=== PATIENT | female | born 1940 | race Caucasian/White ===

== ENCOUNTER → 2017-01-01 | Outpatient (CLI) | payer BC ==
[~2017-01-01] MED LIST: AMOX500C3 PO; ATOR10TA88 PO; CALC-393 PO; CALC600T9 PO; COEN200C PO; CYCL0.052 OP; HYDR25TA4 PO; MISCCAP80 PO; PANT40TA PO; PRDFOPS
[2017-01-01 09:47] LABS: BASO % 0.3 %; BASO ABS # 0.02 K/uL (0-0.2); COMPLETE YES; EOS % 1.7 %; HEMATOCRIT 46.1 % (37-47); IG% 0.1 %; LYMPH ABS # 2.05 K/uL (1.2-3.4); MEAN CELL VOLUME 89.3 fL (80-100); MEAN CORPUSCULAR HEMOGLOBIN 30.6 pg (25-34); MEAN CORPUSCULAR HGB CONC 34.3 g/dl (32-36); MEAN PLATELET VOLUME 9.7 fL (7.4-10.4); MONO % 8.9 %; PLATELET COUNT 238 K/uL (130-400); RED BLOOD COUNT 5.16 M/uL (4.2-5.4); WHITE BLOOD COUNT 7.87 K/uL (4.8-10.8)
[2017-01-01 09:50] LABS: URINE APPEARANCE CLEAR (CLEAR); URINE BILIRUBIN NEG (NEG); URINE COLOR YELLOW; URINE EPITHELIAL CELL AUTO 20-30 /lpf (0-5); URINE NITRITE NEG (NEG); URINE PH 5.5 (4.5-7.5); URINE SPECIFIC GRAVITY 1.019 (1.000-1.030); UROBILINOGEN NEG (NEG); ZZUR CULT IF INDIC CLEAN CATCH NO
[2017-01-01 09:57] LABS: ALT/SGPT 26 U/L (12-78); AST/SGOT 23 U/L (15-37); BLOOD UREA NITROGEN 21 mg/dl (7-18); BUN/CREATININE RATIO 20.9 (10-20); CALCIUM 9.4 mg/dl (8.5-10.1); CARBON DIOXIDE 30 mmol/L (21-32); CHLORIDE 102 mmol/L (98-107); CREATININE 0.98 mg/dl (0.60-1.20); GLUCOSE 139 mg/dl (70-99); POTASSIUM 3.6 mmol/L (3.5-5.1); SODIUM 139 mmol/L (136-145)
[2017-01-01 10:14] LABS: MANUAL MICROSCOPIC REQUIRED? NO; REVIEW REQ? NO
== END | disposition home or self-care (01) ==
LOC: C.LAB1850 08:17
PROVIDERS: ATTEND Internal Medicine
DX: E78.00 Pure hypercholesterolemia, unspecified (principal)

== ENCOUNTER → 2017-03-23 | Outpatient (CLI) | payer BC ==
[~2017-03-23] MED LIST changes: +ATOR10TA82 PO; -ATOR10TA88 PO; -CALC-393 PO; -PRDFOPS
== END | disposition home or self-care (01) ==
LOC: C.RDSM 13:55
PROVIDERS: ATTEND Physical Medicine & Rehabilitation Sports Medicine
DX: M25.561 Pain in right knee (principal)

== ENCOUNTER → 2017-04-02 | Outpatient (CLI) | payer BC ==
[~2017-04-02] MED LIST changes: -ATOR10TA82 PO; +ATOR10TA88 PO
[2017-04-02 09:29] LABS: BASO % 0.4 %; BASO ABS # 0.03 K/uL (0-0.2); COMPLETE YES; EOS % 1.7 %; HEMATOCRIT 45.8 % (37-47); IG% 0.3 %; LYMPH % 28.2 %; MEAN CELL VOLUME 88.8 fL (80-100); MEAN CORPUSCULAR HEMOGLOBIN 30.4 pg (25-34); MEAN CORPUSCULAR HGB CONC 34.3 g/dl (32-36); MEAN PLATELET VOLUME 9.6 fL (7.4-10.4); MONO % 8.6 %; NEUT % 60.8 %; PLATELET COUNT 234 K/uL (130-400); RED BLOOD COUNT 5.16 M/uL (4.2-5.4); WHITE BLOOD COUNT 7.81 K/uL (4.8-10.8)
[2017-04-02 09:45] LABS: ESTIMATED AVERAGE GLUCOSE 131 mg/dl; HA1C FLAG Normal (Normal)
[2017-04-02 10:04] LABS: CHOLESTEROL/HDL RATIO 3.3; THYROID STIMULATING HORMONE 2.86 uIu/ml (0.300-4.500)
== END | disposition home or self-care (01) ==
LOC: C.LAB1850 08:35
PROVIDERS: ATTEND Internal Medicine
DX: E78.00 Pure hypercholesterolemia, unspecified (principal)

== ENCOUNTER → 2017-04-09 | Outpatient (CLI) | payer BC ==
--- NOTE | 2017-04-09 13:47 | MAMMOGRAPHY REPORT ---
BILATERAL DIGITAL SCREENING MAMMOGRAM WITH CAD: 04/09/2017 CLINICAL HISTORY: Routine screening. Patient has no complaints. TECHNIQUE: Bilateral CC and MLO views were obtained. Current study was also evaluated with a Compute r Aided Detection (CAD) system. COMPARISON: Comparison is made to exams dated: 03/11/2016 mammogram, 03/07/2015 mammogram, 03/06/2014 mamm ogram, 03/03/2013 mammogram, 02/28/2011 mammogram - [facility], and 03/13/2009. BREAST COMPOSITION: There are scattered areas of fibroglandular density in both breasts. FINDINGS: There is an increasingly prominent focal asymmetry measuring 11 x 14 mm in the upper outer posterior left breast, in the same location as a ribbon shaped metallic biopsy marker clip. Additio nal spot compression tomosynthesis views and possible ultrasound are recommended. There is stable nodularity in the anterior retroareolar left breast. Mild vascular calcification jamil aterally. No other suspicious mass, architectural distortion or cluster of microcalcifications is see n. IMPRESSION: ACR BI-RADS CATEGORY 0: INCOMPLETE EVALUATION: NEED ADDITIONAL IMAGING EVALUATION The increasingly prominent 11 x 14 mm asymmetry in the left upper outer quadrant needs additional kaylan luation. The patient will be called to schedule an appointment. Approximately 10% of breast cancers are not detected with mammography. A negative mammographic report should not delay biopsy if a clinically suggestive mass is present. Merced Rosas M.D. ay/:04/09/2017 13:07:41 Manager Intelligence: Shauna KEY)(Yazmin), [facility] letter sent: Addl Imaging 0 BI-RADS Code: ACR BI-RADS Category 0: Incomplete Evaluation: Need Additional Imaging Evaluation
== END | disposition home or self-care (01) ==
LOC: C.MAMM 09:58
PROVIDERS: ATTEND Obstetrics & Gynecology
DX: Z12.31 Encounter for screening mammogram for malignant neoplasm of breast (principal); N64.89 Other specified disorders of breast

== ENCOUNTER → 2017-04-14 | Day surgery (SDC) | payer BC ==
[2017-03-18 14:30] VITALS: Ht 166.4 cm; Wt 95.5 kg
[~2017-04-14] VITALS: Ht 166.4 cm; Wt 95.5 kg
[~2017-04-14] MED LIST changes: +500ML BSS 0.3ML EPI 1:1000PF IRRIG ONE; +ACETAMINOPHEN 325 MG TAB PO PRN; +AMVISC PLUS 0.8ML SYRINGE INT OCU ONE; +ATROPINE SULFATE 0.1 MG/ML 5ML SYR IV PRN; +BSS FLUSH ONE; +EpHEDrine SULFATE INJ 50 MG/ML AMP IV PRN; +EpINEphrine INJ 1MG/ML AMP 1 MG/ML AMP ONE; +LACTATED RINGER'S 1000ML 500 ML IV SCH; +LIDOCAINE 3.5% OPH GEL PER APPLICATION CHARGE ONE; +LIDOCAINE HCL 1% MPF 2 ML VIAL ONE; +MIDAZOLAM HCL 1 MG/ML 2ML VIAL ONE; +OCUCOAT 1 ML SOLN IO ONE; +POVIDONE-IODINE OP SOLN 30 ML BTL ONE; +PROPARACAINE 0.5% OP SOLN PER DROP CHARGE OPR SCH; +TOBRAMYCIN/DEXAMETHASONE OPH OINT PER APPLN CHARGE ONE
[2017-04-14] MEDS: PHENYLEPHRINE HCL 2.5% OP SOLN PER DROP CHARGE OPR SCH ×2 (07:54→08:02)
[2017-04-14] MEDS: TROPICAMIDE 1% OP SOLN PER DROP CHARGE OPR SCH ×2 (07:55→08:04)
[2017-04-14] MEDS: CYCLOPENTOLATE HCL 1% OP SOLN PER DROP CHARGE OPR SCH ×2 (07:56→08:05)
[2017-04-14] MEDS: KETOROLAC 0.5% OP SOLN PER DROP CHARGE OPR SCH ×2 (07:58→08:06)
[2017-04-14] MEDS: GATIFLOXACIN OP SOLN PER DROP CHARGE OPR SCH ×2 (08:00→08:14)
--- NOTE | 2017-04-14 08:11 | History & Physical Bridge - SC ---
H&P Re-Evaluation Bridge Note: I have examined the patient, reviewed the History & Physical and in the interval since the performance of the History & Physical I have noted the following changes of clinical significance: No changes noted
--- NOTE | 2017-04-14 08:53 | Discharge Instructions-SurgCtr ---
Discharge Instructions Date of Service Apr 14, 2017. Visit Reason for Visit: Right Cataract Discharge Discharge Diagnosis / Problem: cataract Discharge Goals Goal(s): Improve function Activity Recommendations Activity Limitations: per Instructions/Follow-up section Anesthesia . Post Anesthesia Instructions: If you have had General Anesthesia or IV Sedation: * Do not drive today. * Resume driving when surgeon permits. * Do not make important decisions or sign legal documents today. * Call surgeon for: 1. Temperature elevations greater than 101 degrees F. 2. Uncontrollable pain. 3. Excessive bleeding. 4. Persistent nausea and vomiting. 5. Medication intolerance (nausea, vomiting or rash). * For nausea and vomiting use only clear liquids such as: tea, soda, bouillon until nausea subsides, then gradually increase diet as tolerated. * If you have any concerns or questions, call your surgeon's office. If physician is unavailable and it is an emergency, call 911 or go to the nearest emergency room. . Instructions / Follow-Up Instructions / Follow-Up ACTIVITY RECOMMENDATIONS: * No strenuous lifting, jogging or running for 4 days * No swimming or yard work for 1 week. * Limited bending is permitted, such as putting on shoes. RETURN TO SCHOOL/WORK: No work until seen by physician in office. MEDICATIONS: Resume previous medications unless instructed otherwise by your surgeon. This includes eye drops for glaucoma. Zymaxid/Gatifloxacin (juárez cap) - one drop every 2 hours until bedtime Nevanac/Ilevro/Prolensa/Ketorolac (lester cap) - one drop every 4 hours until bedtime Prednisolone/Durezol (white/pink cap, SHAKE WELL) - one drop every 2 hours until bedtime Starting tomorrow - all 3 drops every 4 hours until seen in the office Optive drops - as needed for discomfort SPECIAL CARE INSTRUCTIONS: * Wear eyeshield when sleeping, for four nights. * You may wear your own glasses or sunglasses while awake. * You may read or watch TV * You may shower and wash your face, but be gentle around the eye and pat dry. * Blurry vision and mild irritation are normal. * Call office if pain is more severe or vision becomes dark at . FOLLOW UP VISIT: Follow-up with Dr Torres tomorrow. Diet Recommendations Home Diet: resume previous diet Procedures Procedures Performed: Right Cataract Phacoemulsification With Intraocular Lens Implant Pending Studies Studies pending at discharge: no Medical Emergencies . Who to Call and When: Medical Emergencies: If at any time you feel your situation is an emergency, please call 911 immediately. . Non-Emergent Contact Non-Emergency issues call your: [employer] . . "Provider Documentation" section prepared by Cosmo Torres. .
--- NOTE | 2017-04-14 08:54 | [facility] Operative Report ---
Operative Report Date of Service Apr 14, 2017. Operative Report 1. PREOPERATIVE DIAGNOSIS: Cataract of the right eye. 2. POSTOPERATIVE DIAGNOSIS: Same. 3. PROCEDURE: Phacoemulsification with intraocular lens implantation of the right eye. SURGEON: Dr. Cosmo Torres. ANESTHESIA: Topical Lidocaine gel, 1% Non- Preserved intracameral Lidocaine, and monitored intravenous sedation. INDICATIONS FOR THE PROCEDURE: The patient is a 77 - year-old female with a history of cataract of the right eye causing significant visual impairment. The details of the proposed procedure were explained to the patient who asked appropriate questions and following discussion of all risks, benefits and alternatives agreed to have the procedure done. 4. OPERATION AND FINDINGS: DESCRIPTION OF PROCEDURE: After informed consent was obtained, the patient was brought to the Operating Room at the [facility]. The patient was placed in a supine position and then the right eye was prepped and draped in the usual sterile fashion for intraocular surgery. A drop of topical Lidocaine gel was placed in the operative eye. A wire lid speculum was then placed in the fornices. A corneal paracentesis was then created temporally. The Non-Preserved Lidocaine was then instilled into the anterior chamber. The anterior chamber was then pressurized with viscoelastic. A 2.0 mm clear corneal incision was then created temporally. A cystotome was inserted into the anterior chamber and used to create a tear in the anterior lens capsule. This capsular tear was then used to create a small flap and the flap was dragged in a counterclockwise direction in order to create a continuous curvilinear capsulorrhexis. Hydrodissection was accomplished with balanced salt solution. Phacoemulsification of the lens nucleus was then performed in a standard [id number] technique. The phaco time was 26 seconds with an average power of 15 %. The remaining cortical material was removed using irrigation aspiration. The capsular bag was then filled with viscoelastic. A B[employer]ch [employer] Lomb MI60L +26.5 diopters lens was then loaded into the injector and injected into the capsular bag. The remaining viscoelastic was removed with the irrigation aspiration handpiece. The wound was hydrated and then checked and found to be watertight. The intraocular pressure was checked and found to be adequate. The wire lid speculum was removed and the patient's face was cleaned and dried. TobraDex ointment was placed in the inferior fornix. The patient was discharged to the Recovery Room having tolerated the procedure well. There were no complications. The patient will be seen tomorrow in the office for follow-up. I attest to the content of the Intraoperative Record and any orders documented therein. Any exceptions are noted below.
[2017-04-14 08:55] VITALS: BP_DIAS 78; TEMP 36.4
--- NOTE | 2017-04-14 09:13 | Anesthesia Progress Nt - [facility] ---
Anesthesia Post Op Note Date & Time Apr 14, 2017 at 09:13 Vital Signs Pain Intensity: 0 Vital Signs Past 12 Hours Date Time Temp Pulse Resp B/P (MAP) Pulse Ox O2 Delivery O2 Flow Rate FiO2 04/14/17 08:55 36.4 68 16 124/78 (93) 98 Room Air 04/14/17 07:37 36.7 66 16 141/ (47) 93 Room Air Notes Mental Status: alert / awake / arousable, participated in evaluation Pt Amnestic to Procedure: Yes Nausea / Vomiting: adequately controlled Pain: adequately controlled Airway Patency, RR, SpO2: stable & adequate BP & HR: stable & adequate Hydration State: stable & adequate Anesthetic Complications: no major complications apparent
[2017-04-14 09:18] VITALS: BP_SYST 74; PULSE 65; O2SAT 95
== END | disposition home or self-care (01) ==
LOC: X.SURG 07:26
PROVIDERS: ATTEND Ophthalmology
DX: H26.9 Unspecified cataract (principal); I10 Essential (primary) hypertension; E78.00 Pure hypercholesterolemia, unspecified; E78.1 Pure hyperglyceridemia

== ENCOUNTER → 2017-04-22 | Outpatient (CLI) | payer BC ==
[~2017-04-22] MED LIST changes: -500ML BSS 0.3ML EPI 1:1000PF IRRIG ONE; -ACETAMINOPHEN 325 MG TAB PO PRN; -AMVISC PLUS 0.8ML SYRINGE INT OCU ONE; -ATROPINE SULFATE 0.1 MG/ML 5ML SYR IV PRN; -BSS FLUSH ONE; -EpHEDrine SULFATE INJ 50 MG/ML AMP IV PRN; -EpINEphrine INJ 1MG/ML AMP 1 MG/ML AMP ONE; -LACTATED RINGER'S 1000ML 500 ML IV SCH; -LIDOCAINE 3.5% OPH GEL PER APPLICATION CHARGE ONE; -LIDOCAINE HCL 1% MPF 2 ML VIAL ONE; -MIDAZOLAM HCL 1 MG/ML 2ML VIAL ONE; -OCUCOAT 1 ML SOLN IO ONE; -POVIDONE-IODINE OP SOLN 30 ML BTL ONE; -PROPARACAINE 0.5% OP SOLN PER DROP CHARGE OPR SCH; -TOBRAMYCIN/DEXAMETHASONE OPH OINT PER APPLN CHARGE ONE
--- NOTE | 2017-04-22 13:53 | MAMMOGRAPHY REPORT ---
UNILATERAL LEFT DIGITAL DIAGNOSTIC MAMMOGRAM TOMOSYNTHESIS AND TARGETED LEFT ULTRASOUND: 04/22/2017 CLINICAL HISTORY: 77-year-old woman with a history of previous ultrasound guided core biopsy in the 1 :30 left breast, 5 cm from the nipple in 2008. She was currently called back from screening mammogra phy for increasing asymmetry in the upper outer left breast surrounding the biopsy marker clip. During diagnostic evaluation, the patient underwent an extended discussion regarding problem she has had in the left breast since the biopsy in 2008. She initially reported pain and then nipple dischar ge. She had an outside consultation and second opinion in [place], [place]. They performed a galacto gram, presumably for the nipple discharge, and she also discussed a desire to have the biopsy marker clip removed. One of her consulting physicians recommended not removing the biopsy marker clip. She reported the galactogram results were negative. Most recently she had a few days instance of diffus e severe pain in the left breast, which based on her description could have represented mastitis. Cu rrently she is asymptomatic. TECHNIQUE: Spot compression left CC and MLO 2-D and tomosynthesis images were performed in the left u pper outer quadrant. COMPARISON: Comparison is made to exams dated: 04/09/2017 mammogram, 03/11/2016 mammogram, 03/07/2015 mamm ogram, 03/06/2014 mammogram, 03/03/2013 mammogram, and 03/02/2012 mammogram - [facility] BREAST COMPOSITION: There are scattered areas of fibroglandular density in the left breast. FINDINGS: There is a persistent multiloculated, partially circumscribed mass associated with and/or s urrounding the biopsy marker clip in the 1:30 middle one third of the left breast, measuring 6.6 x 11 .0 x 10.0 mm. This is increased comparing back to the 2010 mammograms. No associated architectural distortion or microcalcification. Other scattered circumscribed subcentimeter masses are again seen throughout the left breast. No other suspicious or irregular mass, focal area of architectural disto rtion or suspicious calcifications are seen. Targeted ultrasound was performed in the upper outer quadrant of the left breast with particular atte ntion to the 1:30 axis. In the 1:30 left breast, 5 cm from the nipple, there are a cluster of cysts versus a multiloculated cyst measuring 8.6 x 4.5 x 10.6 mm in conglomerate. This correlates well wit h the shape and location as the mammographic mass. There is a linear internal focus which may possib ly represent the biopsy marker clip, although it is not definitively seen. No other suspicious solid mass is seen throughout the upper outer quadrant. Another benign anechoic cyst is seen slightly med ial to this measured cluster of cysts. IMPRESSION: ACR-BI-RADS CATEGORY 3: PROBABLY BENIGN, TARGETED ULTRASOUND ACR-BI-RADS CATEGORY 3: PRO BABLY BENIGN 1. The increasing asymmetry in the left upper outer quadrant near the biopsy marker clip is thought to represent a cluster of cysts versus multiloculated cyst. This finding is most likely benign, sheehan karie, given the mammographic increased, a short interval follow-up diagnostic mammogram and repeat tar geted ultrasound is recommended to ensure stability in 6 months. This could also be concordant given that the biopsy results from 2008 yielded nonproliferative fibrocystic change. 2. I also discussed the patient's biopsy marker clip, and that it is indeed amenable to removal if t he patient desires. We could attempt to biopsy it out with stereotactic guidance and vacuum assistan ce. Alternatively, preoperative localization and surgical excision would ensure removal in case it w as not amenable to vacuum assisted biopsy. She will consider her options regarding biopsy clip removal. These results and recommendations were discussed with the patient at the time of the exam. She tenta tively scheduled the follow-up diagnostic mammogram and ultrasound of the left breast prior to lekirann g our department. Approximately 10% of breast cancers are not detected with mammography. A negative mammographic report should not delay biopsy if a clinically suggestive mass is present. Merced Rosas M.D. ay/:04/22/2017 12:53:27 Aircraft Maintenance Instructor: Marian Capps, [facility] letter sent: Follow Up Recommended 3 BI-RADS Code: ACR-BI-RADS Category 3: Probably Benign Ultrasound BI-RADS: ACR-BI-RADS Category 3: Pr obably Benign
== END | disposition home or self-care (01) ==
LOC: C.MAMM 09:35
PROVIDERS: ATTEND Obstetrics & Gynecology
DX: R92.8 Other abnormal and inconclusive findings on diagnostic imaging of breast (principal); N64.89 Other specified disorders of breast

== ENCOUNTER → 2017-06-03 | Outpatient (CLI) | payer BC ==
[2017-06-03 12:21] LABS: URINE APPEARANCE TURBID (CLEAR); URINE BILIRUBIN NEG (NEG); URINE COLOR DK YELLOW; URINE EPITHELIAL CELL AUTO >30 /lpf (0-5); URINE NITRITE POS (NEG); URINE PH 5.5 (4.5-7.5); URINE SPECIFIC GRAVITY 1.018 (1.000-1.030); UROBILINOGEN NEG (NEG); ZZUR CULT IF INDIC CLEAN CATCH YES
[2017-06-03 12:33] LABS: MANUAL MICROSCOPIC REQUIRED? NO; REVIEW REQ? NO
== END | disposition home or self-care (01) ==
LOC: C.LAB1850 10:09
PROVIDERS: ATTEND Obstetrics & Gynecology
DX: R39.9 Unspecified symptoms and signs involving the genitourinary system (principal)

== ENCOUNTER → 2017-07-30 | Outpatient (CLI) | payer BC ==
[~2017-07-30] MED LIST changes: +ATOR10TA82 PO; -ATOR10TA88 PO
[2017-07-30 09:51] LABS: ESTIMATED AVERAGE GLUCOSE 131 mg/dl; HA1C FLAG Normal (Normal)
--- NOTE | 2017-08-06 09:09 | CODING QUERY MEDICAL NECESSITY ---
SUPPORTING DIAGNOSIS NEEDED A supporting diagnosis is required for the test/procedure performed on this patient in order for us to be reimbursed by the patient's insurance. Please provide a supporting diagnosis for the following test/procedure listed below next to the test name along with your signature. *If there is no additional diagnosis for this patient that would support the following test/procedure please document that below next to the test/procedure. Test(s)/Procedure(s) that require a supporting diagnosis: * HEMOGLOBIN A1C DIAGNOSIS: Provider Signature: Date: Thank you Elena Harrison [employer] Once completed, please kindly fax back to [phone] For questions please call [phone]
== END | disposition home or self-care (01) ==
LOC: C.LAB1850 08:59
PROVIDERS: ATTEND Internal Medicine
DX: E78.00 Pure hypercholesterolemia, unspecified (principal); R73.9 Hyperglycemia, unspecified

== ENCOUNTER → 2017-08-03 | Outpatient (CLI) | payer BC | END | disposition home or self-care (01) | LOC: C.LABSPEC 13:26 | PROVIDERS: ATTEND Obstetrics & Gynecology | DX: N76.0 Acute vaginitis (principal); B37.2 Candidiasis of skin and nail ==

== ENCOUNTER → 2017-09-30 | Outpatient (CLI) | payer BC | END | disposition home or self-care (01) | LOC: C.LABSPEC 13:30 | PROVIDERS: ATTEND Obstetrics & Gynecology | DX: N76.0 Acute vaginitis (principal) ==

== ENCOUNTER → 2017-10-23 | Outpatient (CLI) | payer BC ==
--- NOTE | 2017-10-26 07:44 | MAMMOGRAPHY REPORT ---
UNILATERAL LEFT DIGITAL DIAGNOSTIC MAMMOGRAM TOMOSYNTHESIS WITH CAD AND TARGETED LEFT ULTRASOUND: 10/05 CLINICAL HISTORY: Short interval follow-up of a left breast mass. The mass was previously biopsied i 2008, with pathology yielding fibrocystic change. TECHNIQUE: Breast tomosynthesis in addition to standard 2D mammography was performed. Current study was also evaluated with a Computer Aided Detection (CAD) system. Left CC and MLO 2-D and tomosynthes is images were obtained. COMPARISON: Comparison is made to exams dated: 04/22/2017 ultrasound, 04/22/2017 mammogram, 04/09/2017 m ammogram, 03/11/2016 mammogram, 03/07/2015 mammogram, and 03/06/2014 mammogram - [facility]. BREAST COMPOSITION: There are scattered areas of fibroglandular density in the left breast. FINDINGS: A lobulated 10 mm mass within the left upper outer quadrant with an associated biopsy hiral er clip is not significantly changed compared to the April 2017 exam although is increased compared to exams prior to 2016. The mass was previously biopsied and yielded benign fibrocystic change. The r emainder of the left breast is not significantly changed, without suspicious masses, calcifications, or areas of architectural distortion noted. Scattered small circumscribed benign-appearing masses ar e noted within the left breast, not significantly changed and likely represent cysts. Targeted ultrasound was performed of the area of the previously seen left breast mass for which follo w-up was recommended. In the left breast at 1:30, approximately 5 cm from the nipple, there is a lob ulated circumscribed anechoic cystic-appearing mass with thin internal septations, measuring 10 x 5 x 5 mm. A linear biopsy marker clip is seen within the mass. This is stable in size and appearance c ompared to the April 2017 exam. Given the benign pathology on prior biopsy and given that the mass ap pears cystic on ultrasound, it is benign and felt to represent a cyst. IMPRESSION: ACR BI-RADS CATEGORY 2: BENIGN, TARGETED ULTRASOUND ACR BI-RADS CATEGORY 2: BENIGN Cystic 10 mm mass in the left breast at 1:30 is stable compared to the April 2017 exam. Given the ge ign pathology on prior biopsy and given that the mass appears cystic on ultrasound, it is benign and compatible with a cyst. There is no mammographic or targeted sonographic evidence of malignancy. Ret urn to annual mammogram screening schedule is recommended, due April 2018. The patient has been verba shanti notified of the results. Approximately 10% of breast cancers are not detected with mammography. A negative mammographic report should not delay biopsy if a clinically suggestive mass is present. Laurence Merida M.D. ah/:10/23/2017 14:30:16 [employer] Supervisor: Marian Capps, [facility] letter sent: Normal 1/2 BI-RADS Code: ACR BI-RADS Category 2: Benign Ultrasound BI-RADS: ACR BI-RADS Category 2: Benign
== END | disposition home or self-care (01) ==
LOC: C.MAMM 13:40
PROVIDERS: ATTEND Obstetrics & Gynecology
DX: N63.21 Unspecified lump in the left breast, upper outer quadrant (principal)

== ENCOUNTER → 2017-10-24 | Outpatient (CLI) | payer BC | END | disposition home or self-care (01) | LOC: C.LAB1850 10:24 | PROVIDERS: ATTEND Internal Medicine | DX: E78.00 Pure hypercholesterolemia, unspecified (principal) ==

== ENCOUNTER → 2017-10-26 | Outpatient (CLI) | payer BC | END | disposition home or self-care (01) | LOC: C.LAB1850 12:53 | PROVIDERS: ATTEND Obstetrics & Gynecology | DX: R39.9 Unspecified symptoms and signs involving the genitourinary system (principal) ==

== ENCOUNTER → 2017-11-06 | Outpatient (CLI) | payer BC ==
[2017-11-06 09:32] LABS: BASO % 0.1 %; BASO ABS # 0.01 K/uL (0-0.2); EOS % 1.4 %; HEMATOCRIT 44.2 % (37-47); IG# 0.01 K/uL (0.00-0.02); LYMPH % 33.2 %; LYMPH ABS # 2.33 K/uL (1.2-3.4); MEAN CELL VOLUME 91.1 fL (80-100); MEAN CORPUSCULAR HEMOGLOBIN 30.9 pg (25-34); MEAN CORPUSCULAR HGB CONC 33.9 g/dl (32-36); MEAN PLATELET VOLUME 9.7 fL (7.4-10.4); MONO % 9.3 %; MONO ABS # 0.65 K/uL (0.11-0.59); NEUT % 55.9 %; NEUT ABS # 3.91 K/uL (1.4-6.5); PLATELET COUNT 255 K/uL (130-400); RED CELL DISTRIBUTION WIDTH CV 14.6 % (11.5-14.5); RED CELL DISTRIBUTION WIDTH SD 48.2 fL (36.4-46.3); WHITE BLOOD COUNT 7.01 K/uL (4.8-10.8)
[2017-11-06 09:44] LABS: ALT/SGPT 36 U/L (12-78); AST/SGOT 32 U/L (15-37); BLOOD UREA NITROGEN 17 mg/dl (7-18); CALCIUM 9.5 mg/dl (8.5-10.1); CARBON DIOXIDE 29 mmol/L (21-32); CREATININE 1.22 mg/dl (0.60-1.20); GLUCOSE 136 mg/dl (70-99); HEMOGLOBIN A1C 6.2 % (4.5-5.6); POTASSIUM 3.6 mmol/L (3.5-5.1); SODIUM 137 mmol/L (136-145)
[2017-11-06 09:56] LABS: CHOLESTEROL 165 mg/dl (0-200); LDL CHOLESTEROL CALCULATED 74 mg/dl
== END | disposition home or self-care (01) ==
LOC: C.LAB1850 08:26
PROVIDERS: ATTEND Internal Medicine
DX: E78.00 Pure hypercholesterolemia, unspecified (principal)

== ENCOUNTER → 2018-02-17 | Outpatient (CLI) | payer BC | END | disposition home or self-care (01) | LOC: C.LABSPEC 11:11 | PROVIDERS: ATTEND Obstetrics & Gynecology | DX: N76.0 Acute vaginitis (principal) ==

== ENCOUNTER → 2018-02-25 | Outpatient (CLI) | payer BC ==
[2018-02-25 10:03] LABS: HEMOGLOBIN A1C 6.2 % (4.5-5.6)
== END | disposition home or self-care (01) ==
LOC: C.LAB1850 08:10
PROVIDERS: ATTEND Internal Medicine
DX: R73.9 Hyperglycemia, unspecified (principal)

== ENCOUNTER → 2018-04-26 | Outpatient (CLI) | payer BC ==
--- NOTE | 2018-04-27 07:30 | MAMMOGRAPHY REPORT ---
BILATERAL DIGITAL SCREENING MAMMOGRAM TOMOSYNTHESIS WITH CAD: 04/26/2018 CLINICAL HISTORY: Routine screening. Patient has no complaints. TECHNIQUE: The study was acquired using full field digital technology and interpreted from soft copy. Breast tomosynthesis in addition to standard 2D mammography was performed. Current study was also ev aluated with a Computer Aided Detection (CAD) system. COMPARISON: Comparison is made to exams dated: 10/23/2017 mammogram, 04/22/2017 mammogram, 04/09/2017 ma mmogram, 03/11/2016 mammogram, 03/07/2015 mammogram, and 03/06/2014 mammogram - [facility] BREAST COMPOSITION: There are scattered areas of fibroglandular density in both breasts. FINDINGS: There is a stable lobulated mass in the left upper outer quadrant surrounding a metallic bi opsy marker clip, previously documented to represent a cyst cluster on ultrasound. There are other c ircumscribed subcentimeter masses throughout the left breast, most likely fluctuating cysts. Mild va scular calcification bilaterally. No new suspicious mass, architectural distortion or cluster of micr ocalcifications is seen. IMPRESSION: ACR BI-RADS CATEGORY 1: NEGATIVE There is no mammographic evidence of malignancy. A 1 year screening mammogram is recommended.( 019) The patient will receive written notification of the results. Some breast cancers are not detected with mammography. A negative mammographic report should not sanket y biopsy if a clinically suggestive mass is present. Merced Rosas M.D. ay/:04/26/2018 15:30:09 Netting Weaver: RT Leigha(Tony)(Yazmin)(BD), [facility] letter sent: Normal 1/2 BI-RADS Code: ACR BI-RADS Category 1: Negative
== END | disposition home or self-care (01) ==
LOC: C.MAMM 13:15
PROVIDERS: ATTEND Obstetrics & Gynecology
DX: Z12.31 Encounter for screening mammogram for malignant neoplasm of breast (principal)

== ENCOUNTER → 2018-05-10 | Outpatient (CLI) | payer BC | END | disposition home or self-care (01) | LOC: C.RDSM 12:44 | PROVIDERS: ATTEND Physical Medicine & Rehabilitation Sports Medicine | DX: Z96.653 Presence of artificial knee joint, bilateral (principal) ==

== ENCOUNTER → 2018-05-21 | Outpatient (CLI) | payer BC | END | disposition home or self-care (01) | LOC: C.LAB1850 08:18 | PROVIDERS: ATTEND Internal Medicine | DX: R30.0 Dysuria (principal) ==

== ENCOUNTER 2022-10-13 13:29 | Inpatient (IN) ==
[2022-10-13 16:13] LABS: Basophils # (auto) 0.03 K/uL (0-0.2); Basophils % (auto) 0.4 %; Eosinophils # (auto) 0.04 K/uL (0-0.50); Eosinophils % (auto) 0.5 %; Hematocrit (blood only) 48.5 % (34.1-44.9); Hemoglobin 16.3 g/dl (12.0-16.0); Immature Granulocytes # (auto) 0.03 K/uL (0.00-0.02); Immature Granulocytes % (auto) 0.4 %; Lymphocytes # (auto) 1.33 K/uL (1.2-3.4); Lymphocytes % (auto) 17.3 %; Mean Corpuscular Hemoglobin 30.6 pg (25.0-34.0); Mean Corpuscular Hgb Conc 33.6 g/dL (32.0-36.0); Mean Platelet Volume 9.9 fL (9.4-12.3); Monocytes # (auto) 0.63 K/uL (0.24-0.82); Monocytes % (auto) 8.2 %; Neutrophils # (auto) 5.61 K/uL (1.4-6.5); Neutrophils % (auto) 73.2 %; Platelet Count 239 K/uL (130-400); RDW Coefficient of Variation 14.1 % (11.5-14.5); RDW Standard Deviation 46.9 fL (36.4-46.3); Red Blood Count 5.33 M/uL (3.93-5.22); White Blood Count 7.67 K/ul (4.8-10.8)
--- NOTE | 2022-10-13 16:18 | Emergency Department Note ---
Impression & Plan Ambulatory dysfunction ADMIT ED Provider Note HPI: The patient is a an 82-year-old female who presents emergency department with a chief complaint of persistent back pain, right hip pain, and right foot pain since she had a fall this past . Patient was seen here in the emergency department and ultimately discharged home after negative x-ray imaging was obtai gurjit. Patient states she is continued to have some discomfort with ambulation and can only ambulate small distances in her home to go to the restroom. She states that when she gets up into a seated position she experiences pain in her lower back and her groin. Patient states she is also had some issues with urinary frequency over about the past 2 days. She has not had any dysuria. ROS: - Per HPI *Outpatient medications and allergy history reviewed. *Pertinent external medical records reviewed. PE: General: Alert HEENT: Normocephalic, trachea midline Eyes: Extraocular eye movement is intact, no scleral erythema Pulmonary: Clear to auscultation bilaterally, no wheezing Cardio: Regular rate and rhythm GI: Abdomen is soft, nontender : No suprapubic tenderness MSK: Limited flexion at the right hip secondary to pain, contusion over the dorsal aspect of the right foot without any open wounds or lacerations, limited dorsiflexion of the right foot secondary to pain, capillary refill in the digits of the right foot less than 3 seconds Skin: No evidence of rash Neuro: Alert, no focal deficits 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 Given ongoing pain, CT imaging was performed that shows evidence of multiple fractures. Patient does have a greater trochanteric fracture without any evidence of intertrochanteric extension at the right hip, she does have flexion of the right hip intact with some limited secondary to pain. Motor and sensory function is intact distally in the right foot although the patient did have some bruising in the right foot. CT imaging of the foot was also obtained over concern for possible occult fracture, this does show evidence of comminuted fracture of the lateral aspect of the cuneiform bone. In addition, patient has endplate fracture at L2 without any loss of vertebral hei ght. Patient otherwise appears well here in the ED, he states that she does not feel that she can manage her symptoms at home secondary to ambulatory dysfunction and she does not have anyone at home that can help her. She is here today with her son and they are interested in placement for PT/OT. Patient did mention symptoms of urinary frequency, urinalysis does not appear to be consistent with obvious infection. Patient does not have any red flag findings for cauda equina syndrome, no saddle anesthesia, sensory function is intact distally in the lower extremities, no fever. CT imaging of the lumbar spine shows superior endplate fracture at L2 without any evidence of retropulsion. I discussed the patient's imaging results with on-call orthopedic surgery, Dr. Mendiola, who recommended short posterior splint of the right lower extremity for fracture within the foot, he is in agreement for routine consultation tomorrow to further assess the patient. Case was then discussed with the on- call hospitalist, Dr. Beal, who will admit the patient for multiple fractures in addition to ambulatory dysfunction and for PT/OT assessment. Patient and her son at the bedside are in agreement with above plan. Patient was informed of the incidental finding of possible left ovarian cyst versus neoplasm in the left adnexal area on CT imaging of the pelvis. She will follow-up with her outpa tient providers in regards to this finding. Patient was admitted in stable condition for further care. Disposition discussion held by myself with: Patient and son at the bedside Diagnosis: 1. Greater trochanter fracture, right side 2. Cuneiform bone comminuted fracture, closed, right foot 3. L2 endplate fracture, acute 4. Ambulatory dysfunction status post fall Disposition: Admission Christiano Dunbar DO Emergency Medicine Past Med/Surg History Medical History Chronic back pain Dysmetabolic syndrome X PT DENIES Gastroesophageal reflux disease Generalized osteoarthritis of multiple sites GERD (gastroesophageal reflux disease) Hiatal hernia Hypercholesterolemia Hyperglycemia Hypertension Low back pain with left-sided sciatica Nonalcoholic fatty liver disease Osteopenia Prediabetes Recurrent UTI Temporomandibular joint disorder NO CURRENT ISSUE Vertigo Yeast dermatitis Surgical History H/O cataract BILAT H/O thumb surgery LEFT H/O tubal ligation (~1970) History of arthrodesis thumb in opposition, With graft History of breast biopsy LEFT History of cataract surgery BILAT History of cholecystectomy History of colonoscopy History of dilation and curettage History of knee replacement BILAT History of vaginal hysterectomy Status post arthroscopy of shoulder LEFT Status post left breast lumpectomy (07/26/19) Left Breast Biopsy with Needle Localization, Possible Two Areas Dr. Peralta 07/26/19 Family History Grandmother Breast cancer Aunt Breast cancer Mother FH: uterine cancer Cancer Brother FH: esophageal cancer Father Hypertension Heart disease Sister Hypertension Heart disease Stroke Myocardial infarction Denies family history of Ovarian cancer Prostate cancer Diabetes Lung cancer Colorectal cancer Social History Smoking Status: Never smoker Second Hand Exposure: No; Do You Dip or Chew Tobacco: No; Tobacco Cessation Education Requested by Patient: No Hx Alcohol Use: No Hx Substance Use: No Preferred Language: Vietnamese Communication Ability: Effective Visual Impairment: Limited Hearing Ability: Normal Tank Terminal Gauger Required: No Beliefs That Will Affect Care: None marital status: Current Living Situation: Spouse current occupational status: retired How many Children do You have: 3 Other Information That Helps Us Care for You: No Feels Safe at Home: Yes Safety Concerns: Feels Safe At This Time Childhood Exposure to Second-Hand Smoke: No caffeine: Yes Dental Care, Regularly: Yes Physical Activity Frequency: 1-2 Times per Week Seatbelt Use: always Sunscreen Use: Yes Assistive Devices: Glasses and Walker Allergies Allergies Allergy/AdvReac Type Severity Reaction Status Date / Time adhesive Allergy Intermediate RASH AND Verified 10/13/22 16:48 SKIN IRRITATION WITH EXTENDED USE celecoxib Allergy Intermediate ITCHING Verified 10/13/22 16:48 clindamycin [From Cleocin] Allergy Intermediate Rash Verified 10/13/22 16:48 valsartan Allergy Intermediate ITCHING Verified 10/13/22 16:48 AND VERTIGO diclofenac [From Voltaren] Allergy Mild swelling Verified 10/13/22 16:48 of area lisinopril Allergy Unknown Unknown Verified 10/13/22 16:48 aspirin AdvReac Intermediate GI UPSET Verified 10/13/22 16:48 atorvastatin AdvReac Intermediate Muscle Pain Verified 10/13/22 16:48 codeine AdvReac Intermediate NAUSEA & Verified 10/13/22 16:48 RASH NSAIDS (Non-Steroidal AdvReac Intermediate GI UPSET Verified 10/13/22 16:48 Anti-Inflamma pravastatin AdvReac Intermediate Gastrointestinal Verified 10/13/22 16:48 Upset Ftnrcuz-FVS-GkK Reductase AdvReac Intermediate MUSCLE PAIN Verified 10/13/22 16:48 Inhibitor [Noiffwh-Ibl-Kni Reductase Inhibitor] CLINDAMYCIN VAGINAL CREAM Allergy Mild ITCHING ON Uncoded 10/13/22 16:48 LOWER ABDOMEN Opioid Analgesics Allergy Unknown TOLERATES Uncoded 10/13/22 16:48 ULTRAM AT LOW DOSES (RXN = NAUSEA & RASH) Acetyl Salicylic AdvReac Intermediate Gastrointestinal Uncoded 10/13/22 16:48 Upset Home Meds Home Medications Medication Instructions Recorded Confirmed cyclosporine 0.05 % eye drops in a 1 drp ophthalmic (eye) BID 06/03/19 10/13/22 dropperette amoxicillin 500 mg tablet 2,000 mg PO DIRECTED PRN PRIOR 06/09/19 10/13/22 TO dentist appoinment #4 tabs calcium carbonate 600 mg-vitamin 1 tab PO QAM 06/09/19 10/13/22 D3 5 mcg (200 unit) tablet lactobacillus combination no.4 3 3,000 mmu cells PO DAILY 02/12/22 10/13/22 billion cell capsule (Probiotic) acetaminophen 650 mg 650 mg PO Q8H PRN Pain 10/13/22 10/13/22 tablet,extended release cranberry 500 mg capsule 500 mg PO DAILY 10/13/22 10/13/22 pantoprazole 40 mg tablet,delayed 40 mg PO 2XWK Heartburn 10/13/22 10/13/22 release phenazopyridine 99.5 mg tablet 99.5 mg PO TID PRN BLADDER PAIN 10/13/22 10/13/22 (Azo Urinary Pain Relief) Previous Rx's Medication Instructions Recorded hydrochlorothiazide 12.5 mg tablet 12.5 mg PO QAM #90 tabs 02/12/22 Results & Data (ED) Vital Signs Vital Signs - 24 hr 10/13/22 13:56 10/13/22 13:56 10/13/22 16:00 Temperature 37 C 37 C 37 C Temperature Source Oral Oral Oral Pulse Rate 71 Pulse Rate [Apical] 71 73 Respiratory Rate 1 L 16 18 Blood Pressure 169/81 H Blood Pressure [Right Arm] 169/81 H 166/67 H Blood Pressure Mean 110 Blood Pressure Mean [Right Arm] 110 100 Pulse Oximetry 97 97 97 Oxygen Delivery Method Room Air Room Air Sepsis Recent Fever Within 48 Hours No Sepsis New/Unexplained Change in Mental Status N/A Sepsis Action Taken by Nursing No Action Required 10/13/22 17:53 Temperature Temperature Source Pulse Rate Pulse Rate [Apical] 70 Respiratory Rate 18 Blood Pressure Blood Pressure [Right Arm] 159/80 H Blood Pressure Mean Blood Pressure Mean [Right Arm] 106 Pulse Oximetry 95 Oxygen Delivery Method Room Air Sepsis Recent Fever Within 48 Hours Sepsis New/Unexplained Change in Mental Status Sepsis Action Taken by Nursing Laboratory Data 10/13/22 15:35 10/13/22 15:35 Lab Results 10/13/22 10/13/22 10/13/22 Range/Units 14:07 15:35 15:35 WBC 7.67 (4.8-10.8) K/ul RBC 5.33 H (3.93-5.22) M/uL Hgb 16.3 H (12.0-16.0) g/dl Hct 48.5 H (34.1-44.9) % MCV 91.0 (80.0-100.0) fL MCH 30.6 (25.0-34.0) pg MCHC 33.6 (32.0-36.0) g/dL RDW Std Deviation 46.9 H (36.4-46.3) fL RDW Coeff of Jeanmarie 14.1 (11.5-14.5) % Plt Count 239 (130-400) K/uL MPV 9.9 (9.4-12.3) fL Immature Gran % (Auto) 0.4 % Neut % (Auto) 73.2 % Lymph % (Auto) 17.3 % [place] % (Auto) 8.2 % Eos % (Auto) 0.5 % Baso % (Auto) 0.4 % Neut # (Auto) 5.61 (1.4-6.5) K/uL Lymph # (Auto) 1.33 (1.2-3.4) K/uL [place] # (Auto) 0.63 (0.24-0.82) K/uL Eos # (Auto) 0.04 (0-0.50) K/uL Baso # (Auto) 0.03 (0-0.2) K/uL Immature Gran # (Auto) 0.03 H (0.00-0.02) K/uL Sodium 138 (136-145) mmol/L Potassium 3.6 (3.5-5.1) mmol/L Chloride 101 (98-107) mmol/L Carbon Dioxide 28 (21-32) mmol/L Anion Gap 9 (3-11) BUN 21 (6-23) mg/dl Creatinine 0.82 (0.6-1.2) mg/dl Est Cr Clr Drug Dosing 60.4 ml/min Est GFR ( Amer) 76.7 ml/min Est GFR (Non-Af Amer) 66.2 ml/min BUN/Creatinine Ratio 25.6 H (10-20) Glucose 113 H (70-99(Fasting)) mg/dl Calcium 9.7 (8.5-10.1) mg/dl Total Bilirubin 1.5 H (0.2-1.0) mg/dl AST 29 (13-39) U/L ALT 17 (7-52) U/L Alkaline Phosphatase 162 H (34-104) U/L Total Protein 7.9 (6.0-8.3) gm/dl Albumin 4.2 (3.4-5.0) gm/dl Globulin 3.7 (2.5-4.0) gm/dl Albumin/Globulin Ratio 1.1 (0.9-2) Urine Color [place] Urine Appearance Slightly Cloudy (Clear) Urine pH (4.5-7.5) Ur Specific [place] 1.022 (1.000-1.030) Urine Protein (Negative) Urine Glucose (UA) (Negative) Urine Ketones (Negative) Urine Blood (Negative) Urine Nitrite (Negative) Urine Bilirubin (Negative) Urine Urobilinogen (Negative) Ur Leukocyte Esterase (Negative) Urine RBC 0-4 (0-4) /hpf Urine WBC >30 H (0-5) /hpf Ur Epithelial Cells >30 H (0-5) /lpf Urine Bacteria 1+ H (Negative) Hyaline Casts 0-5 (0-5) /lpf SARS-CoV-2, RNA, NAAT (NEGATIVE) 10/13/22 Range/Units 18:30 WBC (4.8-10.8) K/ul RBC (3.93-5.22) M/uL Hgb (12.0-16.0) g/dl Hct (34.1-44.9) % MCV (80.0-100.0) fL MCH (25.0-34.0) pg MCHC (32.0-36.0) g/dL RDW Std Deviation (36.4-46.3) fL RDW Coeff of Jeanmarie (11.5-14.5) % Plt Count (130-400) K/uL MPV (9.4-12.3) fL Immature Gran % (Auto) % Neut % (Auto) % Lymph % (Auto) % [place] % (Auto) % Eos % (Auto) % Baso % (Auto) % Neut # (Auto) (1.4-6.5) K/uL Lymph # (Auto) (1.2-3.4) K/uL [place] # (Auto) (0.24-0.82) K/uL Eos # (Auto) (0-0.50) K/uL Baso # (Auto) (0-0.2) K/uL Immature Gran # (Auto) (0.00-0.02) K/uL Sodium (136-145) mmol/L Potassium (3.5-5.1) mmol/L Chloride (98-107) mmol/L Carbon Dioxide (21-32) mmol/L Anion Gap (3-11) BUN (6-23) mg/dl Creatinine (0.6-1.2) mg/dl Est Cr Clr Drug Dosing ml/min Est GFR ( Amer) ml/min Est GFR (Non-Af Amer) ml/min BUN/Creatinine Ratio (10-20) Glucose (70-99(Fasting)) mg/dl Calcium (8.5-10.1) mg/dl Total Bilirubin (0.2-1.0) mg/dl AST (13-39) U/L ALT (7-52) U/L Alkaline Phosphatase (34-104) U/L Total Protein (6.0-8.3) gm/dl Albumin (3.4-5.0) gm/dl Globulin (2.5-4.0) gm/dl Albumin/Globulin Ratio (0.9-2) Urine Color Urine Appearance (Clear) Urine pH (4.5-7.5) Ur Specific [place] (1.000-1.030) Urine Protein (Negative) Urine Glucose (UA) (Negative) Urine Ketones (Negative) Urine Blood (Negative) Urine Nitrite (Negative) Urine Bilirubin (Negative) Urine Urobilinogen (Negative) Ur Leukocyte Esterase (Negative) Urine RBC (0-4) /hpf Urine WBC (0-5) /hpf Ur Epithelial Cells (0-5) /lpf Urine Bacteria (Negative) Hyaline Casts (0-5) /lpf SARS-CoV-2, RNA, NAAT NEGATIVE (NEGATIVE) Administered Medications Ceftriaxone Sodium 2,000 mg/ (Dextrose) 70 mls @ 140 mls/hr IV Q24H YADIRA Stop: 10/18/22 19:59 Last Infusion: 10/13/22 22:18 Dose: 0 mls/hr Documented By: Admin: 10/13/22 20:20 Dose: 140 mls/hr Documented By: PAT Discontinued Medications Acetaminophen (Acetaminophen 325 Mg Tab) Confirm Administered Dose 650 mg .ROUTE .STK-MED ONE Stop: 10/13/22 17:47 Last Admin: 10/13/22 17:49 Dose: 650 mg Documented By: PAT Imaging Data Radiologist's Impression: Lumbar Spine CT 10/13/22 16:16 CT SCAN OF THE LUMBAR SPINE WITHOUT IV CONTRAST CLINICAL HISTORY: Fall. Low back pain. COMPARISON STUDY: MRI of the lumbar spine dated 06/06/2008. Lumbar spine radiographs dated 02/09/2008. TECHNIQUE: CT scan of the lumbar spine is performed from the lower thoracic s pine to the sacrum. Images are reviewed in the axial, sagittal, and coronal planes. IV contrast was not administered for this examination. A dose lowering technique was utilized adhering to the principles of ALARA. FINDINGS: The skeletal structures are osteopenic. There is an acute superior endplate compression fracture of L2. No significant retropulsion of fragments is seen and there is no significant loss of height. There is associated paravertebral edema. Vertebral body height is otherwise maintained throughout the lumbar spine. Alignment is preserved. There is straightening of the lumbar lordosis. Mild lumbar dextrocurvature centered at L3. Anterior and lateral marginal osteophytes are seen throughout. There is no spondylolysis. No lytic or blastic lesion is seen. The transverse and spinous processes are intact. There is moderate to severe disc space narrowing at L5-S1. Mild disc space narrowing is seen at the remaining lumbar levels. Tiny posterior disc osteophyte complexes are seen at L3-L4, L4-L5, and L5-S1. There is no CT evidence of high-grade centr al canal stenosis. Facet arthropathy is noted in the lower lumbar region. The visualized sacrum and bony pelvis appear intact. The paraspinous soft tissues are normal as visualized. Cholecystectomy clips are noted. There is moderate atherosclerotic calcification and mild ectasia of the abdominal aorta. A 2.4 cm cyst is incidentally noted in the left kidney. Diverticulosis is seen in the partially imaged colon. IMPRESSION: 1. Acute superior endplate compression fracture of L2. No retropulsion of fragments is identified and there is no significant loss of height. 2. No additional acute fracture is seen. 3. Osteopenia with degenerative change and scoliosis as above. ACT 112: Negative or not required by law. Electronically signed by: Bartolome Jacobson M.D. 10/13/2022 5:[address] 10/13/22 16:[address] DOSE: HISTORY: Pelvic pain. fall, groin pain TECHNIQUE: Multiaxial CT images of the pelvis were performed and reformatted in the sagittal and coronal plane without the use of contrast. A dose lowering technique was utilized adhering to the principles of ALARA. COMPARISON: Pelvis and hips 10/09/2022. FINDINGS: Subcutaneous contusion within the right lateral hip. Slightly comminuted nondisplaced fracture within the right greater trochanter. No CT evidence for intertrochanteric extension. No dislocation. The visualized pelvic bones and left hip are intact. No sacral fractures identified. Colonic diverticulosis. A 5.3 cm cystic lesion within the left adnexa. This may be ovarian. IMPRESSION: 1. Slightly comminuted nondisplaced fracture within the right greater trochanter. No CT evidence for intertrochanteric extension. 2. A 5.3 cm cystic lesion within the left adnexa. This may be ovarian raising the possibility of a neoplastic process. Follow-up nonemergent gynecologic consultation recommended. ACT 112: Negative or not required by law. Electronically signed by: Cornell Funes M.D. 10/13/2022 5:[address] 10/13/22 16:17 CT SCAN OF THE RIGHT FOOT WITHOUT IV CONTRAST CLINICAL HISTORY: Fall with right foot injury. COMPARISON STUDY: Radiographs of the right foot dated 10/09/2022. TECHNIQUE: CT scan of the right foot is performed from the ankle to the base of the foot. Images are reviewed in the axial, sagittal, and coronal planes. IV contrast was not administered for this examination. A dose lowering technique was utilized adhering to the principles of ALARA. FINDINGS: The skeletal structures are heterogeneously osteopenic. No fracture is seen at the ankle joint. The ankle mortise is intact. No osteochondral defect is suggested in the talar dome. There is a comminuted fracture of the lateral cuneiform with small displaced fragments, best seen on axial image #132. There is also a tiny avulsion fracture along the dorsal aspect of the anterior cuboid, best seen on axial image #143. There is mild hemorrhage around the fracture sites. No additional fracture is seen. Mild arthritic change is seen throughout the foot. There is a large plantar heel spur. There is no CT evidence of Lisfranc injury. The Achilles tendon is intact as imaged. IMPRESSION: 1. Comminuted fracture of the lateral cuneiform. 2. There is also a tiny avulsion fracture along the dorsal aspect of the anterior cuboid. 3. No additional fracture is seen. ACT 112: Negative or not required by law. Electronically signed by: Bartolome Jacobson M.D. 10/13/2022 5:17 PM Discharge Plan Visit Data Chief Complaint: Fall ED Provider: Christiano Dunbar Discharge Problem: Ambulatory dysfunction Patient Disposition: Admitted As Inpatient Discharge Instructions Interventions: ED Discharge Assessment Last Done: 10/13/22 20:24
[2022-10-13 16:39] LABS: Albumin Globulin Ratio 1.1 (0.9-2); Albumin Level 4.2 gm/dl (3.4-5.0); BUN Creatinine Ratio 25.6 (10-20); Bilirubin,Total 1.5 mg/dl (0.2-1.0); Calcium 9.7 mg/dl (8.5-10.1); Creatinine Clr Calc Pharmacy 60.4 ml/min; Est GFR (African American) 76.7 ml/min; Est GFR (Non-African American) 66.2 ml/min; Globulin 3.7 gm/dl (2.5-4.0); Potassium 3.6 mmol/L (3.5-5.1); Total Protein 7.9 gm/dl (6.0-8.3)
--- NOTE | 2022-10-13 17:21 | CT Scan Report ---
CT SCAN OF THE RIGHT FOOT WITHOUT IV CONTRAST CLINICAL HISTORY: Fall with right foot injury. COMPARISON STUDY: Radiographs of the right foot dated 10/09/2022. TECHNIQUE: CT scan of the right foot is performed from the ankle to the base of the foot. Images are reviewed in the axial, sagittal, and coronal planes. IV contrast was not administered for this examin ation. A dose lowering technique was utilized adhering to the principles of ALARA. FINDINGS: The skeletal structures are heterogeneously osteopenic. No fracture is seen at the ankle yvon int. The ankle mortise is intact. No osteochondral defect is suggested in the talar dome. There is a comminuted fracture of the lateral cuneiform with small displaced fragments, best seen on axial image #132. There is also a tiny avulsion fracture along the dorsal aspect of the anterior cuboid, best se en on axial image #143. There is mild hemorrhage around the fracture sites. No additional fracture is seen. Mild arthritic change is seen throughout the foot. There is a large plantar heel spur. There i s no CT evidence of Lisfranc injury. The Achilles tendon is intact as imaged. IMPRESSION: 1. Comminuted fracture of the lateral cuneiform. 2. There is also a tiny avulsion fracture along the dorsal aspect of the anterior cuboid. 3. No additional fracture is seen. ACT 112: Negative or not required by law. Electronically signed by: Bartolome Jacobson M.D. 10/13/2022 5:17 PM
--- NOTE | 2022-10-13 17:30 | CT Scan Report ---
CT SCAN OF THE LUMBAR SPINE WITHOUT IV CONTRAST CLINICAL HISTORY: Fall. Low back pain. COMPARISON STUDY: MRI of the lumbar spine dated 06/06/2008. Lumbar spine radiographs dated 02/09/2008. TECHNIQUE: CT scan of the lumbar spine is performed from the lower thoracic spine to the sacrum. Imag es are reviewed in the axial, sagittal, and coronal planes. IV contrast was not administered for this examination. A dose lowering technique was utilized adhering to the principles of ALARA. FINDINGS: The skeletal structures are osteopenic. There is an acute superior endplate compression fra cture of L2. No significant retropulsion of fragments is seen and there is no significant loss of hei ght. There is associated paravertebral edema. Vertebral body height is otherwise maintained throughou t the lumbar spine. Alignment is preserved. There is straightening of the lumbar lordosis. Mild lumba r dextrocurvature centered at L3. Anterior and lateral marginal osteophytes are seen throughout. Ther e is no spondylolysis. No lytic or blastic lesion is seen. The transverse and spinous processes are i ntact. There is moderate to severe disc space narrowing at L5-S1. Mild disc space narrowing is seen a t the remaining lumbar levels. Tiny posterior disc osteophyte complexes are seen at L3-L4, L4-L5, and L5-S1. There is no CT evidence of high-grade central canal stenosis. Facet arthropathy is noted in t he lower lumbar region. The visualized sacrum and bony pelvis appear intact. The paraspinous soft tis sues are normal as visualized. Cholecystectomy clips are noted. There is moderate atherosclerotic akbar cification and mild ectasia of the abdominal aorta. A 2.4 cm cyst is incidentally noted in the left k idney. Diverticulosis is seen in the partially imaged colon. IMPRESSION: 1. Acute superior endplate compression fracture of L2. No retropulsion of fragments is identified and there is no significant loss of height. 2. No additional acute fracture is seen. 3. Osteopenia with degenerative change and scoliosis as above. ACT 112: Negative or not required by law. Electronically signed by: Bartolome Jacobson M.D. 10/13/2022 5:29 PM
--- NOTE | 2022-10-13 17:30 | CT Scan Report ---
PELVIS CT CT DOSE: HISTORY: Pelvic pain. fall, groin pain TECHNIQUE: Multiaxial CT images of the pelvis were performed and reformatted in the sagittal and joselin nal plane without the use of contrast. A dose lowering technique was utilized adhering to the princi ples of BRIEN. COMPARISON: Pelvis and hips 10/09/2022. FINDINGS: Subcutaneous contusion within the right lateral hip. Slightly comminuted nondisplaced fract ure within the right greater trochanter. No CT evidence for intertrochanteric extension. No dislocati on. The visualized pelvic bones and left hip are intact. No sacral fractures identified. Colonic dive rticulosis. A 5.3 cm cystic lesion within the left adnexa. This may be ovarian. IMPRESSION: 1. Slightly comminuted nondisplaced fracture within the right greater trochanter. No CT evidence for intertrochanteric extension. 2. A 5.3 cm cystic lesion within the left adnexa. This may be ovarian raising the possibility of a ne oplastic process. Follow-up nonemergent gynecologic consultation recommended. ACT 112: Negative or not required by law. Electronically signed by: Cornell Funes M.D. 10/13/2022 5:29 PM
[2022-10-13] MEDS ORDERED: ACETAMINOPHEN 325 MG TAB ONE (17:46)
[2022-10-13 17:51] LABS: Appearance Urine Slightly Cloudy (Clear); Color Urine Orange; Specific Gravity Urine 1.022 (1.000-1.030)
[2022-10-13 17:54] LABS: Bacteria Urine 1+ (Negative); Epithelial Cell Urine >30 /lpf (0-5); Hyaline Casts Urine 0-5 /lpf (0-5); WBC Urine >30 /hpf (0-5)
[2022-10-13 17:55] LABS: RBC Urine 0-4 /hpf (0-4)
--- NOTE | 2022-10-13 19:02 | History & Physical Report ---
Date of Service October 13, 2022 Assessment & Plan (1) Compression fracture of L2: Plan: Acetaminophen 1 g 3 times daily Tramadol 25 -50 mg every 4 hourly as needed Avoid NSAIDs due to significant history of gastritis and reflux Calcitonin nasal spray daily Lidocaine patch daily Will defer PT OT evaluations pending orthopedic evaluation to determine weightbearing status (2) Fracture of lateral cuneiform bone of right foot: Plan: Posterior splint placed Consult orthopedics for weightbearing recommendations and follow-up (3) Fracture of greater trochanter of right femur: Plan: Suspect nonoperative management but will consult orthopedics for recommendations on weightbearing and follow-up (4) UTI (urinary tract infection): Plan: Symptom of urinary frequency/incontinence Ceftriaxone 2g IV daily Follow up urine culture (5) Adnexal mass: Plan: CA 125 with AM labs Will defer further imaging as non urgent Follow up as outpatient (6) HTN (hypertension): Plan: Continue hydrochlorothiazide 12.5 mg p.o. daily (7) Gastroesophageal reflux disease: Plan: Continue pantoprazole p.o. twice a week Plan VTE prophylaxis - Lovenox 40mg SQ daily Diet - regular Disposition - observation status to med/surg Admission and Anticipated Discharge Date Admission Date: October 13, 2022 History of Present Illness Chief Complaint: Back pain Primary Care Provider: Margarita Vance MD Melissa Stephenson is an 82 year old female who presents to the ER after falling on and 09 October with persistent worsening right leg, hip and groin pain since her falls. She has been having significant pain in her right foot going on for the last 3 months with a possible tendinitis diagnosed by orthopedics. This initial injury occurred after she fell into a raised bed carrying a gallon of fertilized water and pushing herself up with her right foot with pain ever since this time. She thinks this led to her fall on October 07 while in her house when she went to turn her foot gave out on her. She reports no injuries from this fall and managed to ambulate afterwards. However she fell again on October [address] when she was going out to get her trash can and was blowing leaves. She denies any chest pain, shortness of breath, loss of consciousness, dizziness prior to falling. She denies hitting her head. She was seen in the emergency room with x-rays of her ankle, elbow, foot, hip/pelvis and humerus negative for fractures. She was therefore discharged home however her main concern has been worsening back pain while trying to get up and ambulat e Lower back pain severity at worst 8/10; 5/10 with pain medication. This is the main pain limiting her activities of daily living. Right groin pain when sitting and moving/walking. Describes it as feeling like something is torn. Severity at worse 4/10, currently 0/10 at rest. Doesn't last long when she gets it as it stops as soon as she takes weight off it. Right foot pain has been going on for three months but much worse sine the fall and has been requiring a walker. Injury occurred after taking fertilized water to raised bed and she fell into raised bed. Pushed herself up on right foot and has been an issue ever since. Suspected to be tibial tendonitis. Worse since the fall. Severity 4-5/10. She has been taking regular acetaminophen for the pain with tramadol as needed although reports after taking the tramadol she is more unsteady and dizzy on her feet. Allergies Allergy/AdvReac Type Severity Reaction Status Date / Time adhesive Allergy Intermediate RASH AND Verified 10/13/22 16:48 SKIN IRRITATION WITH EXTENDED USE celecoxib Allergy Intermediate ITCHING Verified 10/13/22 16:48 clindamycin [From Cleocin] Allergy Intermediate Rash Verified 10/13/22 16:48 valsartan Allergy Intermediate ITCHING Verified 10/13/22 16:48 AND VERTIGO diclofenac [From Voltaren] Allergy Mild swelling Verified 10/13/22 16:48 of area lisinopril Allergy Unknown Unknown Verified 10/13/22 16:48 aspirin AdvReac Intermediate GI UPSET Verified 10/13/22 16:48 atorvastatin AdvReac Intermediate Muscle Pain Verified 10/13/22 16:48 codeine AdvReac Intermediate NAUSEA & Verified 10/13/22 16:48 RASH NSAIDS (Non-Steroidal AdvReac Intermediate GI UPSET Verified 10/13/22 16:48 Anti-Inflamma pravastatin AdvReac Intermediate Gastrointestinal Verified 10/13/22 16:48 Upset [id number] Reductase AdvReac Intermediate MUSCLE PAIN Verified 10/13/22 16:48 Inhibitor [Ppvgvqd-Ado-Cfe Reductase Inhibitor] CLINDAMYCIN VAGINAL CREAM Allergy Mild ITCHING ON Uncoded 10/13/22 16:48 LOWER ABDOMEN Opioid Analgesics Allergy Unknown TOLERATES Uncoded 10/13/22 16:48 ULTRAM AT LOW DOSES (RXN = NAUSEA & RASH) Acetyl Salicylic AdvReac Intermediate Gastrointestinal Uncoded 10/13/22 16:48 Upset Home Medications Medication Instructions Recorded Confirmed Type cyclosporine 0.05 % eye drops in a 1 drp ophthalmic (eye) BID 06/03/19 10/13/22 History dropperette amoxicillin 500 mg tablet 2,000 mg PO DIRECTED PRN PRIOR 06/09/19 10/13/22 History TO dentist appoinment #4 tabs calcium carbonate 600 mg-vitamin 1 tab PO QAM 06/09/19 10/13/22 History D3 5 mcg (200 unit) tablet hydrochlorothiazide 12.5 mg tablet 12.5 mg PO QAM #90 tabs 02/12/22 10/13/22 Rx lactobacillus combination no.4 3 3,000 mmu cells PO DAILY 02/12/22 10/13/22 History billion cell capsule (Probiotic) acetaminophen 650 mg 650 mg PO Q8H PRN Pain 10/13/22 10/13/22 History tablet,extended release cranberry 500 mg capsule 500 mg PO DAILY 10/13/22 10/13/22 History pantoprazole 40 mg tablet,delayed 40 mg PO 2XWK Heartburn 10/13/22 10/13/22 History release phenazopyridine 99.5 mg tablet 99.5 mg PO TID PRN BLADDER PAIN 10/13/22 10/13/22 History (Azo Urinary Pain Relief) Past Med/Surg History Medical History Chronic back pain Dysmetabolic syndrome X PT DENIES Gastroesophageal reflux disease Generalized osteoarthritis of multiple sites GERD (gastroesophageal reflux disease) Hiatal hernia Hypercholesterolemia Hyperglycemia Hypertension Low back pain with left-sided sciatica Nonalcoholic fatty liver disease Osteopenia Prediabetes Recurrent UTI Temporomandibular joint disorder NO CURRENT ISSUE Vertigo Yeast dermatitis Surgical History H/O cataract BILAT H/O thumb surgery LEFT H/O tubal ligation (~1970) History of arthrodesis thumb in opposition, With graft History of breast biopsy LEFT History of cataract surgery BILAT History of cholecystectomy History of colonoscopy History of dilation and curettage History of knee replacement BILAT History of vaginal hysterectomy Status post arthroscopy of shoulder LEFT Status post left breast lumpectomy (07/26/19) Left Breast Biopsy with Needle Localization, Possible Two Areas Dr. Peralta 07/26/19 Family History Grandmother Breast cancer Aunt Breast cancer Mother FH: uterine cancer Cancer Brother FH: esophageal cancer Father Hypertension Heart disease Sister Hypertension Heart disease Stroke Myocardial infarction Denies family history of Ovarian cancer Prostate cancer Diabetes Lung cancer Colorectal cancer Social History Smoking Status: Never smoker Second Hand Exposure: No; Hx Alcohol Use: No Hx Substance Use: No Preferred Language: Somali Communication Ability: Effective Visual Impairment: Limited Hearing Ability: Normal Golf Cart Mechanic Required: No Beliefs That Will Affect Care: None marital status: Current Living Situation: Spouse current occupational status: retired How many Children do You have: 3 Feels Safe at Home: Yes Childhood Exposure to Second-Hand Smoke: No caffeine: Yes Dental Care, Regularly: Yes Physical Activity Frequency: 1-2 Times per Week Seatbelt Use: always Sunscreen Use: Yes Assistive Devices: Glasses Review of Systems Review of Systems: All systems reviewed & are unremarkable except as noted in HPI & below Increased urination and incontinence, started . Currently taking AZO. Physical Exam Constitutional: WD/WN, vitals as above Eyes: + anicteric sclerae; normal pupil size Respiratory: normal respiratory effort, lungs clear to auscultation Cardiovascular: RRR, no murmur, no edema Gastrointestinal (Abdomen): normal bowel sounds, soft, nontender, no hepatosplenomegaly Musculoskeletal: No pain on int/ext rotation of hip. 1st MTPJ plantar/dorsiflex 5/5 Skin: Trauma: + contusion (medial right ankle, right dorsal foot over MTPJ 2- 4) Neurologic: moves all extremities and awake; not confused Psychiatric: A+Ox3, euthymic affect Results & Data Results & Data ([place]) Vital Signs (Past 12 Hours) Vital Signs Temp Pulse Pulse Resp BP BP Pulse Ox 10/13/22 17:53 70 18 159/80 H 95 10/13/22 16:00 37 C 73 18 166/67 H 97 10/13/22 13:56 37 C 71 16 169/81 H 97 10/13/22 13:56 37 C 71 1 L 169/81 H 97 O2 Del Method 10/13/22 17:53 Room Air 10/13/22 16:00 Room Air 10/13/22 13:56 10/13/22 13:56 Room Air Laboratory Results Abnormal lab results 10/13/22 10/13/22 10/13/22 Range/Units 14:07 15:35 15:35 RBC 5.33 H (3.93-5.22) M/uL Hgb 16.3 H (12.0-16.0) g/dl Hct 48.5 H (34.1-44.9) % RDW Std Deviation 46.9 H (36.4-46.3) fL Immature Gran # (Auto) 0.03 H (0.00-0.02) K/uL BUN/Creatinine Ratio 25.6 H (10-20) Glucose 113 H (70-99(Fasting)) mg/dl Total Bilirubin 1.5 H (0.2-1.0) mg/dl Alkaline Phosphatase 162 H (34-104) U/L Urine WBC >30 H (0-5) /hpf Ur Epithelial Cells >30 H (0-5) /lpf Urine Bacteria 1+ H (Negative) Diagnostic Findings CT SCAN OF THE RIGHT FOOT WITHOUT IV CONTRAST CLINICAL HISTORY: Fall with right foot injury. COMPARISON STUDY: Radiographs of the right foot dated 10/09/2022. TECHNIQUE: CT scan of the right foot is performed from the ankle to the base of the foot. Images are reviewed in the axial, sagittal, and coronal planes. IV contrast was not administered for this examination. A dose lowering technique was utilized adhering to the principles of ALARA. FINDINGS: The skeletal structures are heterogeneously osteopenic. No fracture is seen at the ankle joint. The ankle mortise is intact. No osteochondral defect is suggested in the talar dome. There is a comminuted fracture of the lateral cuneiform with small displaced fragments, best seen on axial image #132. There is also a tiny avulsion fracture along the dorsal aspect of the anterior cuboid, best seen on axial image #143. There is mild hemorrhage around the fracture sites. No additional fracture is seen. Mild arthritic change is seen throughout the foot. There is a large plantar heel spur. There is no CT evidence of Lisfranc injury. The Achilles tendon is intact as imaged. IMPRESSION: 1. Comminuted fracture of the lateral cuneiform. 2. There is also a tiny avulsion fracture along the dorsal aspect of the anterior cuboid. 3. No additional fracture is seen. PELVIS CT CT DOSE: HISTORY: Pelvic pain. fall, groin pain TECHNIQUE: Multiaxial CT images of the pelvis were performed and reformatted in the sagittal and coronal plane without the use of contrast. A dose lowering technique was utilized adhering to the principles of ALARA. COMPARISON: Pelvis and hips 10/09/2022. FINDINGS: Subcutaneous contusion within the right lateral hip. Slightly comminuted nondisplaced fracture within the right greater trochanter. No CT evidence for intertrochanteric extension. No dislocation. The visualized pelvic bones and left hip are intact. No sacral fractures identified. Colonic diverticulosis. A 5.3 cm cystic lesion within the left adnexa. This may be ovarian. IMPRESSION: 1. Slightly comminuted nondisplaced fracture within the right greater trochanter. No CT evidence for intertrochanteric extension. 2. A 5.3 cm cystic lesion within the left adnexa. This may be ovarian raising the possibility of a neoplastic process. Follow-up nonemergent gynecologic consultation recommended. CT SCAN OF THE LUMBAR SPINE WITHOUT IV CONTRAST CLINICAL HISTORY: Fall. Low back pain. COMPARISON STUDY: MRI of the lumbar spine dated 06/06/2008. Lumbar spine radiographs dated 02/09/2008. TECHNIQUE: CT scan of the lumbar spine is performed from the lower thoracic spine to the sacrum. Images are reviewed in the axial, sagittal, and coronal planes. IV contrast was not administered for this examination. A dose lowering technique was utilized adhering to the principles of ALARA. FINDINGS: The skeletal structures are osteopenic. There is an acute superior endplate compression fracture of L2. No significant retropulsion of fragments is seen and there is no significant loss of height. There is associated paravertebral edema. Vertebral body height is otherwise maintained throughout the lumbar spine. Alignment is preserved. There is straightening of the lumbar lordosis. Mild lumbar dextrocurvature centered at L3. Anterior and lateral marginal osteophytes are seen throughout. There is no spondylolysis. No lytic or blastic lesion is seen. The transverse and spinous processes are intact. There is moderate to severe disc space narrowing at L5-S1. Mild disc space narrowing is seen at the remaining lumbar levels. Tiny posterior disc osteophyte complexes are seen at L3-L4, L4-L5, and L5-S1. There is no CT evidence of high-grade central canal stenosis. Facet arthropathy is noted in the lower lumbar region. The visualized sacrum and bony pelvis appear intact. The paraspinous soft tissues are normal as visualized. Cholecystectomy clips are noted. There is moderate atherosclerotic calcification and mild ectasia of the abdominal aorta. A 2.4 cm cyst is incidentally noted in the left kidney. Diverticulosis is seen in the partially imaged colon. IMPRESSION: 1. Acute superior endplate compression fracture of L2. No retropulsion of fragments is identified and there is no significant loss of height. 2. No additional acute fracture is seen. 3. Osteopenia with degenerative change and scoliosis as above. Medications Administered ER medications given: Acetaminophen 650 mg p.o. ECG Indication: other Rate (beats per minute): 69 Rhythm: normal sinus Findings: no acute ischemic change Comparison ECG Date: from (July 12, 2019) Change: no significant change Code Status & VTE Plan Code Status DNR/DNI VTE Prophylaxis Plan VTE Prophylaxis will be ordered: Yes PG Care Time/CCT Total # of Minutes Spent Total Time Spent with Patient: Total time spent is greater than 50% in coordination of care (as documented) at patient's floor/unit and/or counseling patient: Coding Level of Care Code 30175 INT INP/OBS CARE 2/55MIN Diagnoses Compression fracture of L2 S32.020A Fracture of lateral cuneiform bone of right foot S92.221A Fracture of greater trochanter of right femur S72.111A UTI (urinary tract infection) N39.0 Adnexal mass N94.89 HTN (hypertension) I10 Gastroesophageal reflux disease K21.9
[2022-10-13] MEDS ORDERED: cefTRIAXone SODIUM 1,000 MG in DEXTROSE 5% AD-VAN 50 ML IV STA (19:28)
[2022-10-13] MEDS: cefTRIAXone SODIUM 2,000 MG in DEXTROSE 5% 50 ML IV SCH (20:20)
[2022-10-13] MEDS: ACETAMINOPHEN 500 MG TAB PO SCH (22:54)
[2022-10-13] MEDS: ENOXAPARIN INJ 40 MG/0.4 ML SYR SQ SCH (22:56)
[2022-10-14] MEDS: traMADol HCL 50 MG TABLET PO PRN ×3 (02:17→12:59)
[2022-10-14] MEDS ORDERED: KETOROLAC TROMETHAMINE 15 MG/ML VIAL IV ONE (03:18)
--- NOTE | 2022-10-14 08:03 | Electrocardiogram Report ---
Test Reason : Blood Pressure : / mmHG Vent. Rate : 069 BPM Atrial Rate : 069 BPM P-R Int : 196 ms QRS Dur : 084 ms QT Int : 410 ms P-R-T Axes : 021 032 083 degrees QTc Int : 439 ms Normal sinus rhythm Normal ECG When compared with ECG of 12-JUL-2019 12:35, No significant change was found Confirmed by Milan Vaca ([id number] on 10/14/2022 8:03:25 AM Referred By: Margarita Vance Confirmed By:Milan Vaca
[2022-10-14 08:21] LABS: Hematocrit (blood only) 44.8 % (34.1-44.9); Hemoglobin 15.4 g/dl (12.0-16.0); Mean Corpuscular Hemoglobin 30.9 pg (25.0-34.0); Mean Corpuscular Hgb Conc 34.4 g/dL (32.0-36.0); Mean Platelet Volume 9.6 fL (9.4-12.3); Platelet Count 200 K/uL (130-400); Red Blood Count 4.98 M/uL (3.93-5.22); White Blood Count 7.36 K/ul (4.8-10.8)
--- NOTE | 2022-10-14 09:28 | Orthopedic Consultation ---
Date of Consultation October 14, 2022 Assessment & Plan (1) Fracture of greater trochanter of right femur: PT/OT Case management evaluation for placement Ice with easy wrap Pain controlled p.o. medication Partial weightbearing on right lower extremity with walker assistance (2) Fracture of lateral cuneiform bone of right foot: Discussed findings with Dr. Mendiola. He states that he will see the patient after he is finished in the OR today. Patient's plan will be removed from her right lower extremity and she will be transitioned to a cam walker boot to allow her to ambulate. (3) Compression fracture of L2: Consult for spine fracture will be placed with Dr. Jiménez History of Present Illness Reason for Consultation: Right foot cuneiform fracture, right greater trochanter fracture and L2 lumbar compressive fracture Requesting Physician: Martell Mendiola MD Attending Physician: Martell Ugarte MD History of Present Illness This 82-year-old female seen in consultation for fractures of her right foot cuneiform bone, a nondisplaced right greater trochanter fracture and a L2 compressive fracture. Patient states that he had June 2022 she slipped in her garden while picking tomatoes and injured the right foot. She states that she saw her primary care provider, had x-rays that were negative. Refer to orthopedics and saw Reinier in our office who diagnosed her with posterior tibial tendon tendinitis. She states that she her gait has been affected since this injury. She states that last Thursday she was walking in her home and must have turned the wrong way causing her to fall on her right hip. She states that after few days she was fine however later that day she went outside to put the garbage on the curb and decided to blow some leaves off her driveway when she slipped and landed directly on her right hip. She states that she was down for about 20 minutes before someone saw her. She went to the emergency department had x-rays performed that were all unremarkable and discharged home. She states that her pain is becoming progressively worse making it hard for her to walk. She states that she is also experienced some additional symptoms including bilateral SI joint pain and an episode of urinary incontinence. 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 Patient states that she would like to discuss with case management possible placement into a progressive care facility for her . However, she feels that she may need some rehab before this is possible. Currently she denies chest pain, shortness of breath, fever, chills, sweats or numbness or tingling in either lower extremity. She states that last night she did have some nausea which has resolved. Allergies Allergy/AdvReac Type Severity Reaction Status Date / Time adhesive Allergy Intermediate RASH AND Verified 10/13/22 16:48 SKIN IRRITATION WITH EXTENDED USE celecoxib Allergy Intermediate ITCHING Verified 10/13/22 16:48 clindamycin [From Cleocin] Allergy Intermediate Rash Verified 10/13/22 16:48 valsartan Allergy Intermediate ITCHING Verified 10/13/22 16:48 AND VERTIGO diclofenac [From Voltaren] Allergy Mild swelling Verified 10/13/22 16:48 of area lisinopril Allergy Unknown Unknown Verified 10/13/22 16:48 aspirin AdvReac Intermediate GI UPSET Verified 10/13/22 16:48 atorvastatin AdvReac Intermediate Muscle Pain Verified 10/13/22 16:48 codeine AdvReac Intermediate NAUSEA & Verified 10/13/22 16:48 RASH NSAIDS (Non-Steroidal AdvReac Intermediate GI UPSET Verified 10/13/22 16:48 Anti-Inflamma pravastatin AdvReac Intermediate Gastrointestinal Verified 10/13/22 16:48 Upset Dqhbwlq-WIX-RkN Reductase AdvReac Intermediate MUSCLE PAIN Verified 10/13/22 16:48 Inhibitor [Isvrtde-Bls-Ric Reductase Inhibitor] CLINDAMYCIN VAGINAL CREAM Allergy Mild ITCHING ON Uncoded 10/13/22 16:48 LOWER ABDOMEN Opioid Analgesics Allergy Unknown TOLERATES Uncoded 10/13/22 16:48 ULTRAM AT LOW DOSES (RXN = NAUSEA & RASH) Acetyl Salicylic AdvReac Intermediate Gastrointestinal Uncoded 10/13/22 16:48 Upset Home Medications Medication Instructions Recorded Confirmed Type cyclosporine 0.05 % eye drops in a 1 drp ophthalmic (eye) BID 06/03/19 10/13/22 History dropperette amoxicillin 500 mg tablet 2,000 mg PO DIRECTED PRN PRIOR 06/09/19 10/13/22 History TO dentist appoinment #4 tabs calcium carbonate 600 mg-vitamin 1 tab PO QAM 06/09/19 10/13/22 History D3 5 mcg (200 unit) tablet hydrochlorothiazide 12.5 mg tablet 12.5 mg PO QAM #90 tabs 02/12/22 10/13/22 Rx lactobacillus combination no.4 3 3,000 mmu cells PO DAILY 02/12/22 10/13/22 History billion cell capsule (Probiotic) acetaminophen 650 mg 650 mg PO Q8H PRN Pain 10/13/22 10/13/22 History tablet,extended release cranberry 500 mg capsule 500 mg PO DAILY 10/13/22 10/13/22 History pantoprazole 40 mg tablet,delayed 40 mg PO 2XWK Heartburn 10/13/22 10/13/22 History release phenazopyridine 99.5 mg tablet 99.5 mg PO TID PRN BLADDER PAIN 10/13/22 10/13/22 History (Azo Urinary Pain Relief) Patient History Medical History Chronic back pain Dysmetabolic syndrome X PT DENIES Gastroesophageal reflux disease Generalized osteoarthritis of multiple sites GERD (gastroesophageal reflux disease) Hiatal hernia Hypercholesterolemia Hyperglycemia Hypertension Low back pain with left-sided sciatica Nonalcoholic fatty liver disease Osteopenia Prediabetes Recurrent UTI Temporomandibular joint disorder NO CURRENT ISSUE Vertigo Yeast dermatitis Surgical History H/O cataract BILAT H/O thumb surgery LEFT H/O tubal ligation (~1970) History of arthrodesis thumb in opposition, With graft History of breast biopsy LEFT History of cataract surgery BILAT History of cholecystectomy History of colonoscopy History of dilation and curettage History of knee replacement BILAT History of vaginal hysterectomy Status post arthroscopy of shoulder LEFT Status post left breast lumpectomy (07/26/19) Left Breast Biopsy with Needle Localization, Possible Two Areas Dr. Peralta 07/26/19 Family History Grandmother Breast cancer Aunt Breast cancer Mother FH: uterine cancer Cancer Brother FH: esophageal cancer Father Hypertension Heart disease Sister Hypertension Heart disease Stroke Myocardial infarction Denies family history of Ovarian cancer Prostate cancer Diabetes Lung cancer Colorectal cancer Social History Smoking Status: Never smoker Second Hand Exposure: No; Do You Dip or Chew Tobacco: No; Tobacco Cessation Education Requested by Patient: No Hx Alcohol Use: No Hx Substance Use: No Preferred Language: Arabic Communication Ability: Effective Visual Impairment: Limited Hearing Ability: Normal Senior Manager Mmcoe Required: No Beliefs That Will Affect Care: None marital status: Current Living Situation: Spouse current occupational status: retired How many Children do You have: 3 Other Information That Helps Us Care for You: No Feels Safe at Home: Yes Safety Concerns: Feels Safe At This Time Childhood Exposure to Second-Hand Smoke: No caffeine: Yes Dental Care, Regularly: Yes Physical Activity Frequency: 1-2 Times per Week Seatbelt Use: always Sunscreen Use: Yes Assistive Devices: Glasses and Walker Review of Systems Review of Systems: All systems reviewed & are unremarkable except as noted in Subjective Physical Exam Physical Exam: Right foot: Patient has a posterior short leg Ortho-Glass splint in place. I did not remove the splint. Patient states that he is comfortable. Allows for free movement of her toes. She is able to detect light sensation to touch over the pads of all digits. She is able to perform a straig ht leg raise test without difficulty. Right hip: Passive hip flexion to 90 degrees causes no pain. Patient has no pain with light passive internal and external hip rotation. She has no pain with logroll testing. She does experience tenderness to palpation of the greater trochanter and in the groin area. Back: Patient has no tenderness to palpation over the L2 region however she does experience tenderness to palpation over both SI joints. She does have some pain in her lumbar spine when asked to sit up and bent forward. There is no sign of edema, erythema, ecchymosis, warmth or palpable deformity. She is neurovascularly intact in both lower extremities. Results & Data ([facility]) Vital Signs (Past 12 Hours) Vital Signs Temp Pulse Resp BP Pulse Ox O2 Del Method 10/14/22 07:34 36.4 C L 64 16 135/77 96 Room Air 10/13/22 21:35 36.6 C 61 16 134/76 95 Room Air Diagnostic Findings Laboratory Results WBC 7.36 K/ul (4.8-10.8) 10/14/22 07:37 RBC 4.98 M/uL (3.93-5.22) 10/14/22 07:37 Hgb 15.4 g/dl (12.0-16.0) 10/14/22 07:37 Hct 44.8 % (34.1-44.9) 10/14/22 07:37 MCV 90.0 fL (80.0-100.0) 10/14/22 07:37 MCH 30.9 pg (25.0-34.0) 10/14/22 07:37 MCHC 34.4 g/dL (32.0-36.0) 10/14/22 07:37 RDW Std Deviation 46.0 fL (36.4-46.3) 10/14/22 07:37 RDW Coeff of Jeanmarie 14.0 % (11.5-14.5) 10/14/22 07:37 Plt Count 200 K/uL (130-400) 10/14/22 07:37 MPV 9.6 fL (9.4-12.3) 10/14/22 07:37 Immature Gran % (Auto) 0.4 % 10/13/22 15:35 Neut % (Auto) 73.2 % 10/13/22 15:35 Lymph % (Auto) 17.3 % 10/13/22 15:35 [place] % (Auto) 8.2 % 10/13/22 15:35 Eos % (Auto) 0.5 % 10/13/22 15:35 Baso % (Auto) 0.4 % 10/13/22 15:35 Neut # (Auto) 5.61 K/uL (1.4-6.5) 10/13/22 15:35 Lymph # (Auto) 1.33 K/uL (1.2-3.4) 10/13/22 15:35 [place] # (Auto) 0.63 K/uL (0.24-0.82) 10/13/22 15:35 Eos # (Auto) 0.04 K/uL (0-0.50) 10/13/22 15:35 Baso # (Auto) 0.03 K/uL (0-0.2) 10/13/22 15:35 Immature Gran # (Auto) 0.03 K/uL (0.00-0.02) H 10/13/22 15:35 Sodium 138 mmol/L (136-145) 10/13/22 15:35 Potassium 3.6 mmol/L (3.5-5.1) 10/13/22 15:35 Chloride 101 mmol/L (98-107) 10/13/22 15:35 Carbon Dioxide 28 mmol/L (21-32) 10/13/22 15:35 Anion Gap 9 (3-11) 10/13/22 15:35 BUN 21 mg/dl (6-23) 10/13/22 15:35 Creatinine 0.82 mg/dl (0.6-1.2) 10/13/22 15:35 Est Cr Clr Drug Dosing 60.4 ml/min 10/13/22 15:35 Est GFR ( Amer) 76.7 ml/min 10/13/22 15:35 Est GFR (Non-Af Amer) 66.2 ml/min 10/13/22 15:35 BUN/Creatinine Ratio 25.6 (10-20) H 10/13/22 15:35 Glucose 113 mg/dl (70-99(Fasting)) H 10/13/22 15:35 Calcium 9.7 mg/dl (8.5-10.1) 10/13/22 15:35 Total Bilirubin 1.5 mg/dl (0.2-1.0) H 10/13/22 15:35 AST 29 U/L (13-39) 10/13/22 15:35 ALT 17 U/L (7-52) 10/13/22 15:35 Alkaline Phosphatase 162 U/L (34-104) H 10/13/22 15:35 Total Protein 7.9 gm/dl (6.0-8.3) 10/13/22 15:35 Albumin 4.2 gm/dl (3.4-5.0) 10/13/22 15:35 Globulin 3.7 gm/dl (2.5-4.0) 10/13/22 15:35 Albumin/Globulin Ratio 1.1 (0.9-2) 10/13/22 15:35 25-OH Vitamin D Total 43.3 ng/ml (30-100) 10/14/22 07:37 Urine Color [place] 10/13/22 14:07 Urine Appearance Slightly Cloudy (Clear) 10/13/22 14:07 Urine pH (4.5-7.5) 10/13/22 14:07 Ur Specific [place] 1.022 (1.000-1.030) 10/13/22 14:07 Urine Protein (Negative) 10/13/22 14:07 Urine Glucose (UA) (Negative) 10/13/22 14:07 Urine Ketones (Negative) 10/13/22 14:07 Urine Blood (Negative) 10/13/22 14:07 Urine Nitrite (Negative) 10/13/22 14:07 Urine Bilirubin (Negative) 10/13/22 14:07 Urine Urobilinogen (Negative) 10/13/22 14:07 Ur Leukocyte Esterase (Negative) 10/13/22 14:07 Urine RBC 0-4 /hpf (0-4) 10/13/22 14:07 Urine WBC >30 /hpf (0-5) H 10/13/22 14:07 Ur Epithelial Cells >30 /lpf (0-5) H 10/13/22 14:07 Urine Bacteria 1+ (Negative) H 10/13/22 14:07 Hyaline Casts 0-5 /lpf (0-5) 10/13/22 14:07 SARS-CoV-2, RNA, NAAT NEGATIVE (NEGATIVE) 10/13/22 18:[address] 10/13/22 16:16 CT SCAN OF THE LUMBAR SPINE WITHOUT IV CONTRAST CLINICAL HISTORY: Fall. Low back pain. COMPARISON STUDY: MRI of the lumbar spine dated 06/06/2008. Lumbar spine radiographs dated 02/09/2008. TECHNIQUE: CT scan of the lumbar spine is performed from the lower thoracic spine to the sacrum. Images are reviewed in the axial, sagittal, and coronal planes. IV contrast was not administered for this examination. A dose lowering technique was utilized adhering to the principles of ALARA. FINDINGS: The skeletal structures are osteopenic. There is an acute superior endplate compression fracture of L2. No significant retropulsion of fragments is seen and there is no significant loss of height. There is associated paravertebral edema. Vertebral body height is otherwise maintained throughout the lumbar spine. Alignment is preserved. There is straightening of the lumbar lordosis. Mild lumbar dextrocurvature centered at L3. Anterior and lateral marginal osteophytes are seen throughout. There is no spondylolysis. No lytic or blastic lesion is seen. The transverse and spinous processes are intact. There is moderate to severe disc space narrowing at L5-S1. Mild disc space narrowing is seen at the remaining lumbar levels. Tiny posterior disc osteophyte complexes are seen at L3-L4, L4-L5, and L5-S1. There is no CT evidence of high-grade central canal stenosis. Facet arthropathy is noted in the lower lumbar region. The visualized sacrum and bony pelvis appear intact. The paraspinous soft tissues are normal as visualized. Cholecystectomy clips are noted. There is moderate atherosclerotic calcification and mild ectasia of the abdominal aorta. A 2.4 cm cyst is incidentally noted in the left kidney. Diverticulosis is seen in the partially imaged colon. IMPRESSION: 1. Acute superior endplate compression fracture of L2. No retropulsion of fragments is identified and there is no significant loss of height. 2. No additional acute fracture is seen. 3. Osteopenia with degenerative change and scoliosis as above. ACT 112: Negative or not required by law. Electronically signed by: Bartolome Jacobson M.D. 10/13/2022 5:[address] 10/13/22 16:[address] DOSE: HISTORY: Pelvic pain. fall, groin pain TECHNIQUE: Multiaxial CT images of the pelvis were performed and reformatted in the sagittal and coronal plane without the use of contrast. A dose lowering technique was utilized adhering to the principles of ALARA. COMPARISON: Pelvis and hips 10/09/2022. FINDINGS: Subcutaneous contusion within the right lateral hip. Slightly comminuted nondisplaced fracture within the right greater trochanter. No CT evidence for intertrochanteric extension. No dislocation. The visualized pelvic bones and left hip are intact. No sacral fractures identified. Colonic diverticulosis. A 5.3 cm cystic lesion within the left adnexa. This may be ovarian. IMPRESSION: 1. Slightly comminuted nondisplaced fracture within the right greater trochanter. No CT evidence for intertrochanteric extension. 2. A 5.3 cm cystic lesion within the left adnexa. This may be ovarian raising the possibility of a neoplastic process. Follow-up nonemergent gynecologic c onsultation recommended. ACT 112: Negative or not required by law. Electronically signed by: Cornell Funes M.D. 10/13/2022 5:[address] 10/13/22 16:17 CT SCAN OF THE RIGHT FOOT WITHOUT IV CONTRAST CLINICAL HISTORY: Fall with right foot injury. COMPARISON STUDY: Radiographs of the right foot dated 10/09/2022. TECHNIQUE: CT scan of the right foot is performed from the ankle to the base of the foot. Images are reviewed in the axial, sagittal, and coronal planes. IV contrast was not administered for this examination. A dose lowering technique was utilized adhering to the principles of ALARA. FINDINGS: The skeletal structures are heterogeneously osteopenic. No fracture is seen at the ankle joint. The ankle mortise is intact. No osteochondral defect is suggested in the talar dome. There is a comminuted fracture of the lateral cuneiform with small displaced fragments, best seen on axial image #132. There is also a tiny avulsion fracture along the dorsal aspect of the anterior cuboid, best seen on axial image #143. There is mild hemorrhage around the fracture sites. No additional fracture is seen. Mild arthritic change is seen throughout the foot. There is a large plantar heel spur. There is no CT evidence of Lisfranc injury. The Achilles tendon is intact as imaged. IMPRESSION: 1. Comminuted fracture of the lateral cuneiform. 2. There is also a tiny avulsion fracture along the dorsal aspect of the anterior cuboid. 3. No additional fracture is seen. ACT 112: Negative or not required by law. Electronically signed by: Bartolome Jacobson M.D. 10/13/2022 5:17 PM
[2022-10-14] MEDS: ACETAMINOPHEN 500 MG TAB PO SCH ×3 (09:32→20:58)
[2022-10-14] MEDS: CALCITONIN SALMON NA 200 IU/AC 3.7 ML BTL SCH (09:32)
[2022-10-14] MEDS: ADVANCED PROBIOTIC 1250 MG CAPSULE PO SCH (09:32)
[2022-10-14] MEDS: hydroCHLOROthiazide 25 MG TAB PO SCH (09:33)
[2022-10-14] MEDS: LIDOCAINE 5% 1 PATCH TD SCH (09:34)
[2022-10-14 09:49] LABS: BUN Creatinine Ratio 30.8 (10-20); Calcium 9.8 mg/dl (8.5-10.1); Creatinine Clr Calc Pharmacy 51.3 ml/min; Est GFR (African American) 67.6 ml/min; Est GFR (Non-African American) 58.3 ml/min; Potassium 3.4 mmol/L (3.5-5.1)
--- NOTE | 2022-10-14 13:32 | Hospitalist Progress Note ---
Date of Service October 14, 2022 Assessment & Plan (1) Compression fracture of L2: Plan: Compression fracture of L2, lateral cuneiform bone fracture of right foot, greater trochanter fracture right femur Orthopedics consulted, nonoperative management at this time May weight-bear as tolerated on right lower extremity, postop shoe or low fracture boot to the right foot. PT/OT pending, anticipate placement. Appreciate recommendations Vitamin D level pending [facility] evaluation recommended based on compression fracture, pending evaluation CM following Continue Tylenol for pain control, avoid NSAIDs due to gastritis Calcitonin nasal spray daily for compression fracture pain, plus lidocaine every 12 hours patch (2) Fracture of lateral cuneiform bone of right foot: Plan: As noted above (3) Fracture of greater trochanter of right femur: Plan: As noted above (4) UTI (urinary tract infection): Plan: Symptom of urinary frequency/incontinence Ceftriaxone 2g IV daily UC sensitivities pending, E. coli speciation. Continue Rocephin pending sensitivities (5) Adnexal mass: Plan: CA 125 with AM labs Will defer further imaging as non urgent Follow up as outpatient (6) HTN (hypertension): Plan: Continue hydrochlorothiazide 12.5 mg p.o. daily (7) Gastroesophageal reflux disease: Plan: Continue pantoprazole p.o. twice a week Plan VTE prophylaxis - Lovenox 40mg SQ daily Diet - regular Disposition - observation status to med/surg Admission and Anticipated Discharge Date Admission Date: October 13, 2022 Subjective Melissa is seen at the bedside. She reports that she feels okay and is not in pain at rest. Has just seen the surgical PA and is aware that they have recommended nonoperative management of her hip. She denies fever, chills, sweats, does endorse some pain on palpation over her right hip. She is aware that Ortho was recommended to consult with surgical spine, has not met them yet. No other questions or concerns at bedside. Review of Systems Review of Systems: All systems reviewed & are unremarkable except as noted in Subjective Physical Exam Physical Exam: General: A&Ox3. NAD. Cooperative. HEENT: Atraumatic, normocephalic. Vision/hearing grossly intact Pulm: CTAB A&P. -wheezes, -rales, -rhonchi. Symmetrical chest rise. No increase in work of breathing. No respiratory distress. Cardiac: RRR, -mrg. Radial pulses intact and symmetrical. Abdominal: Nontender, nondistended, soft. BS present. Extremities: Focally tender over right pelvis and hip, and is able to wiggle toes bilaterally without difficulty. Sensation is intact in toes to soft touch bilaterally. Right dorsal midfoot tender to palpation with swelling, no malleoli or tenderness. PT pulses are intact bilaterally. Results & Data Results & Data ([facility]) Vital Signs (Past 12 Hours) Vital Signs Temp Pulse Resp BP Pulse Ox O2 Del Method 10/14/22 07:34 36.4 C L 64 16 135/77 96 Room Air PG Care Time/CCT Total # of Minutes Spent Total Time Spent with Patient: Total time spent is greater than 50% in coordination of care (as documented) at patient's floor/unit and/or counseling patient: Coding Level of Care Code 98116 SUB INP/OBS CARE 2/35MIN Diagnoses Compression fracture of L2 S32.020A Fracture of lateral cuneiform bone of right foot S92.221A Fracture of greater trochanter of right femur S72.111A UTI (urinary tract infection) N39.0 Adnexal mass N94.89 HTN (hypertension) I10 Gastroesophageal reflux disease K21.9
--- NOTE | 2022-10-14 14:08 | XRay Report ---
XR knee RT 3V CLINICAL HISTORY: Right knee pain following fall COMPARISON: Right knee radiographs June 06, 2022. FINDINGS: Right knee arthroplasty is intact. There is no periprosthetic fracture. There is a small r ight knee joint effusion. No osseous lesions are present. Suprapatellar spurring is incidentally note d. IMPRESSION: 1. Intact total right knee arthroplasty. No fracture. 2. Small right knee joint effusion. ACT 112: Negative or not required by law. Electronically signed by: Topher Viveros M.D. 10/14/2022 2:07 PM
[2022-10-14] MEDS ORDERED: cefTRIAXone SODIUM 1,000 MG in DEXTROSE 5% AD-VAN 50 ML IV SCH (19:30)
[2022-10-14] MEDS: cefTRIAXone SODIUM 2,000 MG in DEXTROSE 5% 50 ML IV SCH (20:50)
[2022-10-14] MEDS: CALCIUM 600MG + VIT D 400 IU TAB PO SCH (20:54)
[2022-10-14] MEDS: ENOXAPARIN INJ 40 MG/0.4 ML SYR SQ SCH (20:58)
[2022-10-15] MEDS ORDERED: PANTOprazole 40 MG TAB PO SCH (09:00)
[2022-10-15] MEDS: ACETAMINOPHEN 500 MG TAB PO SCH ×3 (09:03→20:24)
[2022-10-15] MEDS: CALCIUM 600MG + VIT D 400 IU TAB PO SCH ×2 (09:04→20:21)
[2022-10-15] MEDS: CALCITONIN SALMON NA 200 IU/AC 3.7 ML BTL SCH (09:04)
[2022-10-15] MEDS: hydroCHLOROthiazide 25 MG TAB PO SCH (09:04)
--- NOTE | 2022-10-15 09:58 | Orthopedic Progress Note ---
Date of Service October 15, 2022 Assessment & Plan (1) Fracture of greater trochanter of right femur: Plan: PT/OT Case management evaluation for placement Ice with easy wrap Pain controlled p.o. medication Weight bear as tolerated on right lower extremity with walker assistance (2) Fracture of lateral cuneiform bone of right foot: Plan: Cam boot when out of bed bed right foot. Ice and elevation PRN swelling. Allowed for ROM of right foot/ankle and knee. WBAT RLE (3) Compression fracture of L2: Plan: Dr. Jiménez consult pending. Admission and Anticipated Discharge Date Admission Date: October 14, 2022 Subjective Patient doing well at rest. States some pain, mainly in her low back and upper hips with ambulating or sitting for too long. Denies any lower extremity numbness or tingling. States the boot, makes her off balance but she doesn't have any pain in her right foot or ankle with ambulating. Physical Exam Musculoskeletal: Distal N/V intact. Minimal exam performed today, same as yesterday. Right foot elevated on pillows. Dr. Mendiola present for today's visit also. Results & Data ([facility]) Vital Signs (Past 12 Hours) Vital Signs Temp Pulse Resp BP Pulse Ox O2 Del Method 10/15/22 07:57 36.5 C 63 14 138/72 96 Room Air Diagnostic Findings XR knee RT 3V CLINICAL HISTORY: Right knee pain following fall COMPARISON: Right knee radiographs June 06, 2022. FINDINGS: Right knee arthroplasty is intact. There is no periprosthetic fracture. There is a small right knee joint effusion. No osseous lesions are present. Suprapatellar spurring is incidentally noted. IMPRESSION: 1. Intact total right knee arthroplasty. No fracture. 2. Small right knee joint effusion.
[2022-10-15] MEDS: traMADol HCL 50 MG TABLET PO PRN ×3 (10:30→21:09)
[2022-10-15] MEDS: LIDOCAINE 5% 1 PATCH TD SCH (10:31)
[2022-10-15] MEDS: ADVANCED PROBIOTIC 1250 MG CAPSULE PO SCH (10:31)
--- NOTE | 2022-10-15 12:44 | Consultation ---
Date of Consultation October 15, 2022 Assessment & Plan (1) Compression fracture of L2: Dr. Jiménez has reviewed imaging. Treatment plan is conservative. She has received a TLSO brace today. It is to be worn at all times including standing and when sleeping. She can remove it when in a seated position. No lifting greater than 5 pounds. Weightbearing status from my standpoint is weightbearing as tolerated. This may be affected though due to her fractures affecting her right lower extremity. We would like to see her in our office in 2 weeks for follow-up and x-rays. Please call [phone] for appointment. Thank you. We will sign off. History of Present Illness Reason for Consultation: Lumbar fracture Attending Physician: Tera Corral MD History of Present Illness Is a pleasant 82 of female who sustained a fall almost a week ago. She has back pain and right foot pain. Also has some right groin pain. 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 Arrangements are currently being made for both of them once the patient is discharged. Allergies Allergy/AdvReac Type Severity Reaction Status Date / Time adhesive Allergy Intermediate RASH AND Verified 10/13/22 16:48 SKIN IRRITATION WITH EXTENDED USE celecoxib Allergy Intermediate ITCHING Verified 10/13/22 16:48 clindamycin [From Cleocin] Allergy Intermediate Rash Verified 10/13/22 16:48 valsartan Allergy Intermediate ITCHING Verified 10/13/22 16:48 AND VERTIGO diclofenac [From Voltaren] Allergy Mild swelling Verified 10/13/22 16:48 of area lisinopril Allergy Unknown Unknown Verified 10/13/22 16:48 aspirin AdvReac Intermediate GI UPSET Verified 10/13/22 16:48 atorvastatin AdvReac Intermediate Muscle Pain Verified 10/13/22 16:48 codeine AdvReac Intermediate NAUSEA & Verified 10/13/22 16:48 RASH NSAIDS (Non-Steroidal AdvReac Intermediate GI UPSET Verified 10/13/22 16:48 Anti-Inflamma pravastatin AdvReac Intermediate Gastrointestinal Verified 10/13/22 16:48 Upset Uaibrtt-NPE-JrG Reductase AdvReac Intermediate MUSCLE PAIN Verified 10/13/22 16:48 Inhibitor [Iyzahfo-Sin-Sny Reductase Inhibitor] CLINDAMYCIN VAGINAL CREAM Allergy Mild ITCHING ON Uncoded 10/13/22 16:48 LOWER ABDOMEN Opioid Analgesics Allergy Unknown TOLERATES Uncoded 10/13/22 16:48 ULTRAM AT LOW DOSES (RXN = NAUSEA & RASH) Acetyl Salicylic AdvReac Intermediate Gastrointestinal Uncoded 10/13/22 16:48 Upset Home Medications Medication Instructions Recorded Confirmed Type cyclosporine 0.05 % eye drops in a 1 drp ophthalmic (eye) BID 06/03/19 10/13/22 History dropperette amoxicillin 500 mg tablet 2,000 mg PO DIRECTED PRN PRIOR 06/09/19 10/13/22 History TO dentist appoinment #4 tabs calcium carbonate 600 mg-vitamin 1 tab PO QAM 06/09/19 10/13/22 History D3 5 mcg (200 unit) tablet hydrochlorothiazide 12.5 mg tablet 12.5 mg PO QAM #90 tabs 02/12/22 10/13/22 Rx lactobacillus combination no.4 3 3,000 mmu cells PO DAILY 02/12/22 10/13/22 History billion cell capsule (Probiotic) acetaminophen 650 mg 650 mg PO Q8H PRN Pain 10/13/22 10/13/22 History tablet,extended release cranberry 500 mg capsule 500 mg PO DAILY 10/13/22 10/13/22 History pantoprazole 40 mg tablet,delayed 40 mg PO 2XWK Heartburn 10/13/22 10/13/22 History release phenazopyridine 99.5 mg tablet 99.5 mg PO TID PRN BLADDER PAIN 10/13/22 10/13/22 History (Azo Urinary Pain Relief) Patient History Medical History Chronic back pain Dysmetabolic syndrome X PT DENIES Gastroesophageal reflux disease Generalized osteoarthritis of multiple sites GERD (gastroesophageal reflux disease) Hiatal hernia Hypercholesterolemia Hyperglycemia Hypertension Low back pain with left-sided sciatica Nonalcoholic fatty liver disease Osteopenia Prediabetes Recurrent UTI Temporomandibular joint disorder NO CURRENT ISSUE Vertigo Yeast dermatitis Surgical History H/O cataract BILAT H/O thumb surgery LEFT H/O tubal ligation (~1970) History of arthrodesis thumb in opposition, With graft History of breast biopsy LEFT History of cataract surgery BILAT History of cholecystectomy History of colonoscopy History of dilation and curettage History of knee replacement BILAT History of vaginal hysterectomy Status post arthroscopy of shoulder LEFT Status post left breast lumpectomy (07/26/19) Left Breast Biopsy with Needle Localization, Possible Two Areas Dr. Peralta 07/26/19 Family History Grandmother Breast cancer Aunt Breast cancer Mother FH: uterine cancer Cancer Brother FH: esophageal cancer Father Hypertension Heart disease Sister Hypertension Heart disease Stroke Myocardial infarction Denies family history of Ovarian cancer Prostate cancer Diabetes Lung cancer Colorectal cancer Social History Smoking Status: Never smoker Second Hand Exposure: No; Do You Dip or Chew Tobacco: No; Tobacco Cessation Education Requested by Patient: No Hx Alcohol Use: No Hx Substance Use: No Preferred Language: [place]an Communication Ability: Effective Visual Impairment: Limited Hearing Ability: Normal Commercial Appraiser Required: No Beliefs That Will Affect Care: None marital status: Current Living Situation: Spouse current occupational status: retired How many Children do You have: 3 Other Information That Helps Us Care for You: No Feels Safe at Home: Yes Safety Concerns: Feels Safe At This Time Childhood Exposure to Second-Hand Smoke: No caffeine: Yes Dental Care, Regularly: Yes Physical Activity Frequency: 1-2 Times per Week Seatbelt Use: always Sunscreen Use: Yes Assistive Devices: Cane and Walker Review of Systems Review of Systems: All systems reviewed & are unremarkable except as noted in HPI & below Physical Exam Physical Exam: She is lying in bed in no acute distress Alert and oriented x3 Exam is limited on the right lower extremity due to fractures Painful with range of motion of the lumbar spine Constitutional: WD/WN, vitals as above Eyes: normal visual de la fuente by confrontation ENMT: external ear and nose normal, oropharynx normal Neck: normal visual inspection Respiratory: normal respiratory effort Cardiovascular: Extremities: normal capillary refill Gastrointestinal (Abdomen): Inspection/Auscultation: abdomen normal to inspection Musculoskeletal: Spine: + lumbar spinal tenderness Extremities: extremities normal to inspection Skin: no rashes, warm and dry Neurologic: normal touch/pain/proprioception and moves all extremities Psychiatric: A+Ox3, euthymic affect Eye Contact: good eye contact Speech: normal rate/rhythm/volume of speech Results & Data ([facility]) Vital Signs (Past 12 Hours) Vital Signs Temp Pulse Resp BP BP Pulse Ox O2 Del Method 10/15/22 11:20 36.6 C 60 16 120/72 97 Room Air 10/15/22 07:57 36.5 C 63 14 138/72 96 Room Air Diagnostic Findings [place], [place] [phone] CT Scan Report Patient:JUAN DELACRUZ Admit Date:10/13/22 MR#:[id number] Address1:[address] Acct ID:[id number] Address2: Date:1940 [facility] Zip:[place] [address] Age:82 Location:ED Sex:F Room/Bed: Att Phy: Diagnosis:FALL Jordana Phy:Margarita Vance MD Service Date:10/13/22 Fam Phy: Interpreting Phy:Bartolome Jacobson MDAdmit Phy: Ordering Phy:Christiano Dunbar DO cc: ~ CT SCAN OF THE LUMBAR SPINE WITHOUT IV CONTRAST CLINICAL HISTORY: Fall. Low back pain. COMPARISON STUDY: MRI of the lumbar spine dated 06/06/2008. Lumbar spine radiographs dated 02/09/2008. TECHNIQUE: CT scan of the lumbar spine is performed from the lower thoracic spine to the sacrum. Images are reviewed in the axial, sagittal, and coronal planes. IV contrast was not administered for this examination. A dose lowering technique was utilized adhering to the principles of ALARA. FINDINGS: The skeletal structures are osteopenic. There is an acute superior endplate compression fracture of L2. No significant retropulsion of fragments is seen and there is no significant loss of height. There is associated paravertebral edema. Vertebral body height is otherwise maintained throughout the lumbar spine. Alignment is preserved. There is straightening of the lumbar lordosis. Mild lumbar dextrocurvature centered at L3. Anterior and lateral marginal osteophytes are seen throughout. There is no spondylolysis. No lytic or blastic lesion is seen. The transverse and spinous processes are intact. There is moderate to severe disc space narrowing at L5-S1. Mild disc space narrowing is seen at the remaining lumbar levels. Tiny posterior disc osteophyte complexes are seen at L3-L4, L4-L5, and L5-S1. There is no CT evidence of high-grade central canal stenosis. Facet arthropathy is noted in the lower lumbar region. The visualized sacrum and bony pelvis appear intact. The paraspinous soft tissue s are normal as visualized. Cholecystectomy clips are noted. There is moderate atherosclerotic calcification and mild ectasia of the abdominal aorta. A 2.4 cm cyst is incidentally noted in the left kidney. Diverticulosis is seen in the partially imaged colon. IMPRESSION: 1. Acute superior endplate compression fracture of L2. No retropulsion of fragments is identified and there is no significant loss of height. 2. No additional acute fracture is seen. 3. Osteopenia with degenerative change and scoliosis as above. ACT 112: Negative or not required by law. Electronically signed by: Bartolome Jacobson M.D. 10/13/2022 5:29 PM Dictated:10/13/22 1718 Transcribed: 10/13/22 1718
--- NOTE | 2022-10-15 13:58 | Hospitalist Progress Note ---
Date of Service October 15, 2022 Assessment & Plan (1) Compression fracture of L2: Plan: Compression fracture of L2, lateral cuneiform bone fracture of right foot, greater trochanter fracture right femur Orthopedics consulted, nonoperative management at this time May weight-bear as tolerated on right lower extremity, postop shoe or low fracture boot to the right foot. PT/OT pending, anticipate placement. Appreciate recommendations Vitamin D level pending [facility] evaluation recommended TLSO brace for compression fx CM following Continue Tylenol for pain control, avoid NSAIDs due to gastritis Calcitonin nasal spray daily for compression fracture pain, plus lidocaine every 12 hours patch -SNF placement pending (2) Fracture of lateral cuneiform bone of right foot: Plan: Cam boot when out of bed (3) Fracture of greater trochanter of right femur: Plan: WBAT, RLE with walker assistance (4) UTI (urinary tract infection): Plan: Symptom of urinary frequency/incontinence Ceftriaxone 2g IV daily UC sensitivities pending, E. coli speciation. Continue Rocephin pending sensitivities (5) Adnexal mass: Plan: CA 125 with AM labs Will defer further imaging as non urgent Follow up as outpatient (6) HTN (hypertension): Plan: Continue hydrochlorothiazide 12.5 mg p.o. daily (7) Gastroesophageal reflux disease: Plan: Continue pantoprazole p.o. twice a week Plan VTE prophylaxis - Lovenox 40mg SQ daily Diet - regular Disposition - SNF Admission and Anticipated Discharge Date Admission Date: October 14, 2022 Subjective patient seen and examined, lying quietly in bed, not in pains Review of Systems Review of Systems: All systems reviewed are negative, apart from the ones contained in the history. Physical Exam Physical Exam: The patient is awake, alert and oriented 3, well developed and well nourished, normocephalic and atraumatic, lying in bed and in no acute distress. HEENT--PERRL, EOMI, mucous membranes and oropharynx mildly dry Neck--supple. No JVD. No bruits. Thyroid normal, trachea midline, no adenopathy. Heart--normal S1 and S2. No murmurs, rubs or gallops. Lungs--clear bilaterally, no respiratory distress, no accessory muscle use. Abdomen--normal bowel sounds and soft. Mild epigastric and left sided abdominal pain Extremities--cam boot right foot Dermatologic--normal skin turgor, normal color, no abnormal lymph nodes, no rash. Neurologic--cranial nerves II through XII grossly intact. Rheumatologic--normal range of motion. Psychiatric--normal affect. Results & Data Results & Data ([facility]) Vital Signs (Past 12 Hours) Vital Signs Temp Pulse Resp BP BP Pulse Ox O2 Del Method 10/15/22 11:20 97.9 F 60 16 120/72 97 Room Air 10/15/22 07:57 97.7 F 63 14 138/72 96 Room Air PG Care Time/CCT Total # of Minutes Spent Total Time Spent with Patient: Total time spent is greater than 50% in coordination of care (as documented) at patient's floor/unit and/or counseling patient: Coding Level of Care Code 98192 SUB INP/OBS CARE 2/35MIN Diagnoses Compression fracture of L2 S32.020A Fracture of lateral cuneiform bone of right foot S92.221A Fracture of greater trochanter of right femur S72.111A UTI (urinary tract infection) N39.0 Adnexal mass N94.89 HTN (hypertension) I10 Gastroesophageal reflux disease K21.9 Time Spent (min) 35
[2022-10-15] MEDS: cefTRIAXone SODIUM 2,000 MG in DEXTROSE 5% 50 ML IV SCH (20:13)
[2022-10-15] MEDS: ENOXAPARIN INJ 40 MG/0.4 ML SYR SQ SCH (20:21)
[2022-10-16] MEDS: CALCITONIN SALMON NA 200 IU/AC 3.7 ML BTL SCH (08:05)
[2022-10-16] MEDS: LIDOCAINE 5% 1 PATCH TD SCH (08:06)
[2022-10-16] MEDS: ADVANCED PROBIOTIC 1250 MG CAPSULE PO SCH (08:09)
[2022-10-16] MEDS: CALCIUM 600MG + VIT D 400 IU TAB PO SCH ×2 (08:10→20:59)
[2022-10-16] MEDS: traMADol HCL 50 MG TABLET PO PRN ×2 (08:10→08:44)
[2022-10-16] MEDS: ONDANSETRON INJ 2 MG/ML 2 ML VIAL IV PRN (08:44)
[2022-10-16] MEDS: hydroCHLOROthiazide 25 MG TAB PO SCH (09:56)
[2022-10-16] MEDS: ACETAMINOPHEN 500 MG TAB PO SCH ×3 (09:56→20:58)
--- NOTE | 2022-10-16 09:58 | Orthopedic Progress Note ---
Date of Service October 16, 2022 Assessment & Plan (1) Fracture of greater trochanter of right femur: Plan: Patient was encouraged to participate in PT/OT. Continue pain management with tramadol as narcotics make her significantly nauseated. Anticipate transfer to a [facility] facility once a bed is available. Continue using the back brace for support as well as the cam boot for protection of the foot and ankle. Weight-bear as tolerated. Importance of getting out of bed was discussed with the patient. Follow-up in the office in approximately 2 weeks for reassessment. She will require new films of the back, hip, and foot at that time. Patient had numerous questions about her back brace. Most of these were answered. She will need answers directly from the prosthetists regarding a few of her questions. (2) Fracture of lateral cuneiform bone of right foot: Plan: Continue with her cam boot. Weight-bear as tolerated. (3) Compression fracture of L2: Plan: Continue with the back brace. Admission and Anticipated Discharge Date Admission Date: October 14, 2022 Subjective Patient is seen in her room this morning. She states she is little nauseated at this time. She was having some back pain this morning and took 50 mg of tramadol. She states she took it on an empty stomach and is now nauseated. She has lost her appetite and has not finished breakfast. Other than that, she s tates she feels fairly well. She has very little discomfort in her foot at this time. She denies any significant hip or back pain. Physical Exam Physical Exam: General: Well-developed, well-nourished, elderly female, in no acute distress. Alert and oriented. Conversive. Patient is lying in bed. Skin: Warm dry with fair turgor. No rashes. She has ecchymosis present in her right dorsal foot and into the toes. Mild edema is present. Ecchymosis is developing at the right hip. Musculoskeletal: Patient has supple motion of her upper extremities. She is currently lying flat. She does get an increase in back discomfort with attempts at sitting up. No significant discomfort with logrolling of the right hip. She is tender to touch with palpation over the greater trochanter. She currently has no discomfort with palpation over the ankle or foot foot. Intact motor function of the ankle and toes without significant discomfort as well. Neurologic: Gross sensation is intact across both lower extremities by soft touch. Peripheral pulses are 2+. Results & Data ([facility]) Vital Signs (Past 12 Hours) Vital Signs Temp Pulse Resp BP BP Pulse Ox O2 Del Method 10/16/22 07:32 36.5 C 64 16 129/73 93 Room Air 10/15/22 23:00 37.4 C 67 18 138/79 92 Room Air
--- NOTE | 2022-10-16 13:31 | Hospitalist Progress Note ---
Date of Service October 16, 2022 Assessment & Plan (1) Compression fracture of L2: Plan: Compression fracture of L2, lateral cuneiform bone fracture of right foot, greater trochanter fracture right femur Orthopedics consulted, nonoperative management at this time May weight-bear as tolerated on right lower extremity, postop shoe or low fracture boot to the right foot. [facility] evaluation recommended TLSO brace for compression fx CM following Continue Tylenol for pain control, avoid NSAIDs due to gastritis Calcitonin nasal spray daily for compression fracture pain, plus lidocaine every 12 hours patch -Continue physical therapy -SNF placement pending (2) Fracture of lateral cuneiform bone of right foot: Plan: Cam boot when out of bed (3) Fracture of greater trochanter of right femur: Plan: WBAT, RLE with walker assistance (4) UTI (urinary tract infection): Plan: Symptom of urinary frequency/incontinence Urinalysis suggests UTI Cultures growing E coli, pansensitive continue Ceftriaxone 2g IV daily (5) Adnexal mass: Plan: CA 125 with AM labs Will defer further imaging as non urgent Follow up as outpatient (6) HTN (hypertension): Plan: Continue hydrochlorothiazide 12.5 mg p.o. daily (7) Gastroesophageal reflux disease: Plan: Continue pantoprazole p.o. twice a week Plan VTE prophylaxis - Lovenox 40mg SQ daily Diet - regular Disposition - SNF Admission and Anticipated Discharge Date Admission Date: October 14, 2022 Subjective patient seen and examined, complains of some nausea Review of Systems Review of Systems: All systems reviewed are negative, apart from the ones contained in the history. Physical Exam Physical Exam: The patient is awake, alert and oriented 3, well developed and well nourished, normocephalic and atraumatic, lying in bed and in no acute distress. HEENT--PERRL, EOMI, mucous membranes and oropharynx mildly dry Neck--supple. No JVD. No bruits. Thyroid normal, trachea midline, no adenopathy. Heart--normal S1 and S2. No murmurs, rubs or gallops. Lungs--clear bilaterally, no respiratory distress, no accessory muscle use. Abdomen--normal bowel sounds and soft. Mild epigastric and left sided abdominal pain Extremities--cam boot right foot Dermatologic--normal skin turgor, normal color, no abnormal lymph nodes, no rash. Neurologic--cranial nerves II through XII grossly intact. Rheumatologic--normal range of motion. Psychiatric--normal affect. Results & Data Results & Data ([facility]) Vital Signs (Past 12 Hours) Vital Signs Temp Pulse Resp BP Pulse Ox O2 Del Method 10/16/22 07:32 97.7 F 64 16 129/73 93 Room Air PG Care Time/CCT Total # of Minutes Spent Total Time Spent with Patient: Total time spent is greater than 50% in coordination of care (as documented) at patient's floor/unit and/or counseling patient: Coding Level of Care Code 64907 SUB INP/OBS CARE 2/35MIN Diagnoses Compression fracture of L2 S32.020A Fracture of lateral cuneiform bone of right foot S92.221A Fracture of greater trochanter of right femur S72.111A UTI (urinary tract infection) N39.0 Adnexal mass N94.89 HTN (hypertension) I10 Gastroesophageal reflux disease K21.9 Time Spent (min) 35
[2022-10-16] MEDS: ENOXAPARIN INJ 40 MG/0.4 ML SYR SQ SCH (20:59)
[2022-10-16] MEDS: cefTRIAXone SODIUM 2,000 MG in DEXTROSE 5% 50 ML IV SCH (21:03)
[2022-10-16] MEDS: SENNA 8.6 MG TAB PO SCH (23:30)
[2022-10-17] MEDS: SENNA 8.6 MG TAB PO SCH (02:57)
[2022-10-17] MEDS: traMADol HCL 50 MG TABLET PO PRN ×2 (07:49→11:59)
[2022-10-17] MEDS: ONDANSETRON INJ 2 MG/ML 2 ML VIAL IV PRN (07:51)
[2022-10-17] MEDS: ACETAMINOPHEN 500 MG TAB PO SCH (09:15)
[2022-10-17] MEDS: CALCITONIN SALMON NA 200 IU/AC 3.7 ML BTL SCH (09:15)
[2022-10-17] MEDS: CALCIUM 600MG + VIT D 400 IU TAB PO SCH (09:16)
[2022-10-17] MEDS: ADVANCED PROBIOTIC 1250 MG CAPSULE PO SCH (09:16)
[2022-10-17] MEDS: hydroCHLOROthiazide 25 MG TAB PO SCH (09:16)
[2022-10-17] MEDS: LIDOCAINE 5% 1 PATCH TD SCH (09:17)
--- NOTE | 2022-10-17 14:08 | Discharge Summary ---
Date of Service October 17, 2022 Admission HPI Per Admitting Provider Melissa Stephenson is an 82 year old female who presents to the ER after falling on and 09 October with persistent worsening right leg, hip and groin pain since her falls. She has been having significant pain in her right foot going on for the last 3 months with a possible tendinitis diagnosed by orthopedics. This initial injury occurred after she fell into a raised bed carrying a gallon of fertilized water and pushing herself up with her right foot with pain ever since this time. She thinks this led to her fall on October 07 while in her house when she went to turn her foot gave out on her. She reports no injuries from this fall and managed to ambulate afterwards. However she fell again on October [address] driveway when she was going out to get her trash can and was blowing leaves. She denies any chest pain, shortness of breath, loss of consciousness, dizziness prior to falling. She denies hitting her head. She was seen in the emergency room with x-rays of her ankle, elbow, foot, hip/pelvis and humerus negative for fractures. She was therefore discharged home however her main concern has been worsening back pain while trying to get up and ambulate Lower back pain severity at worst 8/10; 5/10 with pain medication. This is the main pain limiting her activities of daily living. Right groin pain when sitting and moving/walking. Describes it as feeling like something is torn. Severity at worse 4/10, currently 0/10 at rest. Doesn't last long when she gets it as it stops as soon as she takes weight off it. Right foot pain has been going on for three months but much worse sine the fall and has been requiring a walker. Injury occurred after taking fertilized water to raised bed and she fell into raised bed. Pushed herself up on right foot and has been an issue ever since. Suspected to be tibial tendonitis. Worse since the fall. Severity 4-5/10. She has been taking regular acetaminophen for the pain with tramadol as needed although reports after taking the tramadol she is more unsteady and dizzy on her feet. Principal Diagnosis femoral fracture, cunieform fracture Discharge Exam The patient is awake, alert and oriented 3, well developed and well nourished, normocephalic and atraumatic, lying in bed and in no acute distress. HEENT--PERRL, EOMI, mucous membranes and oropharynx mildly dry Neck--supple. No JVD. No bruits. Thyroid normal, trachea midline, no adenopathy. Heart--normal S1 and S2. No murmurs, rubs or gallops. Lungs--clear bilaterally, no respiratory distress, no accessory muscle use. Abdomen--normal bowel sounds and soft. Mild epigastric and left sided abdominal pain Extremities--cam boot right foot Dermatologic--normal skin turgor, normal color, no abnormal lymph nodes, no rash. Neurologic--cranial nerves II through XII grossly intact. Rheumatologic--normal range of motion. Psychiatric--normal affect. Discharge Data Allergies Allergy/AdvReac Type Severity Reaction Status Date / Time adhesive Allergy Intermediate RASH AND Verified 10/13/22 16:48 SKIN IRRITATION WITH EXTENDED USE celecoxib Allergy Intermediate ITCHING Verified 10/13/22 16:48 clindamycin [From Cleocin] Allergy Intermediate Rash Verified 10/13/22 16:48 valsartan Allergy Intermediate ITCHING Verified 10/13/22 16:48 AND VERTIGO diclofenac [From Voltaren] Allergy Mild swelling Verified 10/13/22 16:48 of area lisinopril Allergy Unknown Unknown Verified 10/13/22 16:48 aspirin AdvReac Intermediate GI UPSET Verified 10/13/22 16:48 atorvastatin AdvReac Intermediate Muscle Pain Verified 10/13/22 16:48 codeine AdvReac Intermediate NAUSEA & Verified 10/13/22 16:48 RASH NSAIDS (Non-Steroidal AdvReac Intermediate GI UPSET Verified 10/13/22 16:48 Anti-Inflamma pravastatin AdvReac Intermediate Gastrointestinal Verified 10/13/22 16:48 Upset [id number]-TaE Reductase AdvReac Intermediate MUSCLE PAIN Verified 10/13/22 16:48 Inhibitor [[id number]-Dqv Reductase Inhibitor] CLINDAMYCIN VAGINAL CREAM Allergy Mild ITCHING ON Uncoded 10/13/22 16:48 LOWER ABDOMEN Opioid Analgesics Allergy Unknown TOLERATES Uncoded 10/13/22 16:48 ULTRAM AT LOW DOSES (RXN = NAUSEA & RASH) Acetyl Salicylic AdvReac Intermediate Gastrointestinal Uncoded 10/13/22 16:48 Upset Consultations 10/13/22 18:30 ED Decision to Admit Stat 10/13/22 21:34 Consult Orthopedic Surgery Routine 10/14/22 09:41 Consult Orthopedic Surgery Routine Ordered Studies 10/13/22 16:16 CT lumbar spine wo con Stat CT pelvis wo con Stat 10/13/22 16:17 CT foot RT wo con Stat Hospital Course (1) Compression fracture of L2: Compression fracture of L2, lateral cuneiform bone fracture of right foot, greater trochanter fracture right femur Orthopedics consulted, nonoperative management at this time May weight-bear as tolerated on right lower extremity, postop shoe or low fracture boot to the right foot. Orthospine evaluation recommended TLSO brace for compression fx CM following Continue Tylenol for pain control, avoid NSAIDs due to gastritis Calcitonin nasal spray daily for compression fracture pain, plus lidocaine every 12 hours patch -Continue physical therapy -SNF placement pending (2) Fracture of lateral cuneiform bone of right foot: Cam boot when out of bed (3) Fracture of greater trochanter of right femur: WBAT, RLE with walker assistance (4) UTI (urinary tract infection): Symptom of urinary frequency/incontinence Urinalysis suggests UTI Cultures growing E coli, pansensitive continue Ceftriaxone 2g IV daily (5) Adnexal mass: CA 125 with AM labs Will defer further imaging as non urgent Follow up as outpatient (6) HTN (hypertension): Continue hydrochlorothiazide 12.5 mg p.o. daily (7) Gastroesophageal reflux disease: Continue pantoprazole p.o. twice a week Plan VTE prophylaxis - Lovenox 40mg SQ daily Diet - regular Disposition - SNF Total Time Total Time Spent Total Time Spent (In Minutes): 35 Discharge Plan Discharge Items Patient Disposition: Transfer Inpatient Rehab Fac Reason For Visit: GREATER TROCHANTERIC #, LATERAL CUNEIFORM #, L2 CO Discharge Diagnosis: L2 fracture, greater troachater fracture Activity: Per Instructions section Non-emergency contact: Primary Care Provider Call non-emergency contact if: you have any medication questions and your symptoms worsen Follow-up/Referrals: Margarita Vance MD [Primary Care Provider] - Hiro Hawthorne PA-C [Physician Racing Secretary] - (in 7-10 days) Diet: Regular Addtl Attending Provider Instructions: please make arrangement to follow up with your regular doctors Addtl Shirt Turner Provider Instructions: Orthopedic Instructions: -Weight-bear as tolerated right lower extremity. Use walker for assistance. -Ice to right hip, right knee, right foot and ankle as needed for pain or swelling. -Elevate right lower extremity above your heart to relieve pain and swelling. -Use cam boot on right foot when ambulating. May remove to bathe, do range of motion exercises and sleep. -Allowed for full range of motion of right ankle, knee and hip as tolerated. -Follow-up with Hiro Hawthorne PA-C in 7 to 10 days for repeat clinical exam and x-rays. Call [phone] to schedule appointment. Pending Studies at Discharge: No Stand-Alone Forms: My [facility] Skilled Items Patient informed of condition?: Yes DNR: Yes Discharge Level of Care: Acute rehab Communicable Disease: No Discharge Prognosis: Stable Lines: None Urinary Catheter: No Medications and DC Order Prescriptions: New cephalexin 500 mg capsule 500 mg PO BID 3 Days Qty: 6 0RF Continued hydrochlorothiazide 12.5 mg tablet 12.5 mg PO QAM Qty: 90 3RF cyclosporine 0.05 % dropperette 1 drp OP BID calcium carbonate-vitamin D3 600 mg(1,500mg) -200 unit tablet 1 tab PO QAM Probiotic 3 billion cell capsule 3,000 mmu cells PO DAILY acetaminophen 650 mg Tablet Extended Release 650 mg PO Q8H PRN (Reason: Pain) cranberry 500 mg Capsule 500 mg PO DAILY Rx Instructions: administer with meal Azo Urinary Pain Relief 99.5 mg Tablet 99.5 mg PO TID PRN (Reason: BLADDER PAIN) pantoprazole 40 mg tablet,delayed release (DR/EC) 40 mg PO 2XWK Rx Instructions: 40 mg PO twice a week; Discontinued amoxicillin 500 mg tablet 2,000 mg PO DIRECTED PRN (Reason: PRIOR TO dentist appoinment) Qty: 4 Rx Instructions: OR ANY INVASIVE PROCEDURES Discharge Orders: Discharge Order (Routine); Ordered 10/17/22 Ordered By: Tera Corral Admission Data Admit Date/Time: 10/14/22 13:25 Attending Provider: Tera Corral Admit Provider: Martell Ugarte Primary Care Provider: Margarita Vance Other Providers: Martell Ugarte ; Martell Mendiola ; Nato Beal ; Ilya Jiménez ; Bella Grayson [facility] Other Interventions: Discharge Summary Assessment (RN) Last Done: 10/17/22 12:17 Coding Level of Care Code HOSP INP/OBS DISCH >30 MIN Diagnoses Compression fracture of L2 S32.020A Fracture of lateral cuneiform bone of right foot S92.221A Fracture of greater trochanter of right femur S72.111A UTI (urinary tract infection) N39.0 Adnexal mass N94.89 HTN (hypertension) I10 Gastroesophageal reflux disease K21.9 Time Spent (min) 35
== END 2022-10-17 12:34 | DRG 551 ==
LOC: ED 13:29 → 3W 13:29 → SUATTDRO 18:51 → 3W 20:24 → SUATTDRO 10-14 13:25 → 3W 10-15 21:46